=== PATIENT | male | born 1985 | race Caucasian/White ===

== ENCOUNTER → 2016-09-27 | Outpatient (CLI) | payer BC ==
[2016-09-27 12:53] LABS: BASO % 0.7 % (0.0-1.0); EOS % 0.7 % (0.0-3.0); LARGE UNSTAINED CELL # 0.1 K/mm3 (0.0-0.4); LARGE UNSTAINED CELL % 1.2 % (0.0-4.0); LYMPH # 0.9 K/mm3 (1.5-4.5); MEAN CORPUSCULAR HGB CONC 34.1 g/dl (32.0-36.5); MEAN CORPUSCULAR VOLUME 87.9 fl (80.0-96.0); MONO # 0.3 K/mm3 (0.0-0.8); MONO % 5.1 % (0.0-5.0); NEUTROPHILS # 4.1 K/mm3 (1.8-7.7); NEUTROPHILS % 75.2 % (36.0-66.0); PLATELET COUNT, AUTOMATED 239 k/mm3 (150-450); RED CELL DISTRIBUTION WIDTH 12.3 % (11.5-14.5); WHITE BLOOD COUNT 5.5 K/mm3 (4.0-10.0)
[2016-09-27 13:20] LABS: ALBUMIN/GLOBULIN RATIO 1.29 (1.00-1.93); ALKALINE PHOSPHATASE 60 U/L (45-117); ALT/SGPT 65 U/L (12-78); ANION GAP 8 MEQ/L (8-16); AST/SGOT 29 U/L (15-37); BILIRUBIN,TOTAL 0.6 MG/DL (0.2-1.0); BLOOD UREA NITROGEN 16 MG/DL (7-18); CALCIUM LEVEL 8.9 MG/DL (8.5-10.1); CARBON DIOXIDE LEVEL 29 MEQ/L (21-32); CHLORIDE LEVEL 104 MEQ/L (98-107); CREATININE FOR GFR 1.02 MG/DL (0.70-1.30); FREE T4 0.85 NG/DL (0.76-1.46); GLOMERULAR FILTRATION RATE > 60.0 (>60); GLUCOSE, FASTING 112 MG/DL (70-105); POTASSIUM SERUM 4.1 MEQ/L (3.5-5.1); SODIUM LEVEL 141 MEQ/L (136-145); TOTAL PROTEIN 7.1 GM/DL (6.4-8.2)
[2016-09-28 14:12] LABS: Lyme Disease IgG/IgM Antibodie <0.91 ISR (0.00-0.90); Lyme Disease IgM Ab Quantitati <0.80 index (0.00-0.79)
== END ==
LOC: M ADAMS 09:15
PROVIDERS: ATTEND Physician Assistant
DX: R53.83 Other fatigue (principal)

== ENCOUNTER → 2017-06-05 | Outpatient (CLI) | payer BC ==
[2017-06-05 14:35] LABS: ERYTHROCYTE SEDIMENTATION RATE 5 mm/hr (0-15)
[2017-06-05 15:41] LABS: C REACTIVE PROTEIN QUANTITATIV 0.32 MG/DL (0.00-0.30)
[2017-06-10 00:07] LABS: ANCA-ATYPICAL <1:20 titer (Neg:<1:20); ANTI-SACCHAROMYCES CEREV. IgA <20.0 Units (0.0-24.9); ANTI-SACCHAROMYCES CEREV. IgG 44.1 Units (0.0-24.9); CYTOPLASMIC NEUTROP AB ANCA-C <1:20 titer (Neg:<1:20); PERINUCLEAR AB ANCA-P <1:20 titer (Neg:<1:20)
== END ==
LOC: M LAB 12:33
DX: R19.7 Diarrhea, unspecified (principal)
CPT/HCPCS: 86256

== ENCOUNTER 2017-08-01 08:58 | Day surgery (SDC) | payer BC ==
[2017-08-01] MEDS: NS 1,000 ML IV (09:30)
[2017-08-01] MEDS ORDERED: LIDOCAINE 2% INJ 100 MG/5 ML SDV (FOR ANES.) As Ordered (10:06)
[2017-08-01] MEDS ORDERED: PROPOFOL 200 MG/20 ML VIAL As Ordered ×2 (10:06→10:51)
[2017-08-01] MEDS ORDERED: ESMOLOL INJ 100MG/10ML VIAL As Ordered (10:33)
== END 2017-08-01 11:31 | disposition home or self-care (01) ==
LOC: M OPP 08:58
DX: R19.7 Diarrhea, unspecified (principal); K50.90 Crohn's disease, unspecified, without complications; R93.3 Abnormal findings on diagnostic imaging of other parts of digestive tract; K64.8 Other hemorrhoids; K63.89 Other specified diseases of intestine; R00.2 Palpitations; I10 Essential (primary) hypertension; Z87.19 Personal history of other diseases of the digestive system; K21.9 Gastro-esophageal reflux disease without esophagitis; R12 Heartburn; R51 Headache; Z79.899 Other long term (current) drug therapy
CPT/HCPCS: 45380

== ENCOUNTER 2018-06-01 19:24 | Emergency (ER) | payer BC ==
[~2018-06-01] VITALS: Ht 177.8 cm; Wt 120.5 kg
[~2018-06-01 19:24] MED LIST: AMLO5TAB6 PO; LISI40TA PO; PAXI10TA12 PO
[2018-06-01] MEDS ORDERED: NORCOTAB PO (20:41)
[2018-06-01] MEDS ORDERED: NORCO 5/325MG TABLET (BULK FOR ED) PO ONE (20:45)
[2018-06-01 20:54] VITALS: BP 126/79
== END 2018-06-01 20:56 | disposition home or self-care (01) ==
LOC: M ED 19:24
DX: S46.111A Strain of muscle, fascia and tendon of long head of biceps, right arm, initial encounter (principal); X58.XXXA Exposure to other specified factors, initial encounter; Y92.099 Unspecified place in other non-institutional residence as the place of occurrence of the external cause; Y93.9 Activity, unspecified; Y99.9 Unspecified external cause status; I10 Essential (primary) hypertension; Z79.899 Other long term (current) drug therapy

== ENCOUNTER → 2018-06-08 | Outpatient (CLI) | payer BC ==
[~2018-06-08] MED LIST changes: +NORCOTAB PO
[2018-06-08 09:57] LABS: HEMATOCRIT 44.4 % (42.0-52.0); HEMOGLOBIN 15.1 g/dl (13.5-17.5)
[2018-06-08 10:17] LABS: INR 0.96; PROTHROMBIN TIME 12.9 SECONDS (12.1-14.4)
--- NOTE | 2018-06-08 22:37 | ECGEPIP ---
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
== END ==
LOC: M LAB 09:23
PROVIDERS: ATTEND Orthopaedic Surgery Sports Medicine
DX: Z01.810 Encounter for preprocedural cardiovascular examination (principal)

== ENCOUNTER → 2018-06-17 | Outpatient (REF) | payer BC | LOC: M LAB REF 12:11 | PROVIDERS: ATTEND Physician Assistant Medical | DX: J02.9 Acute pharyngitis, unspecified (principal) ==

== ENCOUNTER → 2018-10-22 | Outpatient (REF) | payer BC ==
[~2018-10-22] MED LIST changes: +HYDR-3715 PO; -NORCOTAB PO
[2018-10-22 19:24] LABS: BASO # 0.1 10^3/uL (0.0-0.2); BASO % 0.7 % (0.0-1.0); EOS # 0.1 10^3/uL (0.0-0.50); EOS % 0.6 % (0.0-3.0); HEMATOCRIT 44.2 % (42.0-52.0); HEMOGLOBIN 14.7 g/dl (13.5-17.5); LYMPH # 1.8 10^3/uL (1.5-4.5); LYMPH % 20.5 % (24.0-44.0); MEAN CORPUSCULAR HEMOGLOBIN 28.6 pg (27.0-33.0); MEAN CORPUSCULAR HGB CONC 33.3 g/dl (32.0-36.5); MONO # 0.7 10^3/uL (0.0-0.8); MONO % 7.9 % (0.0-5.0); NEUTROPHILS % 69.8 % (36.0-66.0); PLATELET COUNT, AUTOMATED 286 10^3/uL (150-450); RED BLOOD COUNT 5.14 10^6/uL (4.30-6.10); WHITE BLOOD COUNT 8.6 10^3/uL (4.0-10.0)
[2018-10-22 19:28] LABS: ALBUMIN 3.9 GM/DL (3.2-5.2); ALT/SGPT 54 U/L (12-78); BILIRUBIN,TOTAL 0.3 MG/DL (0.2-1.0); BLOOD UREA NITROGEN 15 MG/DL (7-18); CALCIUM LEVEL 9.1 MG/DL (8.5-10.1); CARBON DIOXIDE LEVEL 31 MEQ/L (21-32); CHLORIDE LEVEL 104 MEQ/L (98-107); CREATININE FOR GFR 1.04 MG/DL (0.70-1.30); GLOMERULAR FILTRATION RATE > 60.0 (>60); GLUCOSE, FASTING 91 MG/DL (70-100); POTASSIUM SERUM 4.5 MEQ/L (3.5-5.1); SODIUM LEVEL 139 MEQ/L (136-145); TOTAL PROTEIN 7.6 GM/DL (6.4-8.2)
== END ==
LOC: M SFHCADAM 12:00
PROVIDERS: ATTEND Physician Assistant Medical
DX: I10 Essential (primary) hypertension (principal); K21.9 Gastro-esophageal reflux disease without esophagitis; E66.01 Morbid (severe) obesity due to excess calories

== ENCOUNTER → 2019-01-19 | Outpatient (REF) | payer BC ==
[~2019-01-19] MED LIST changes: +CIPR-249 PO; +FLOM0.4C39 PO; +NORC1TAB7 PO; +ZOFR4TAB16 PO
[2019-01-19 12:50] LABS: BASO # 0.1 10^3/uL (0.0-0.2); BASO % 0.7 % (0.0-1.0); EOS # 0.1 10^3/uL (0.0-0.5); HEMATOCRIT 44.5 % (42.0-52.0); HEMOGLOBIN 14.6 g/dl (13.5-17.5); LYMPH # 1.6 10^3/uL (1.5-5.0); LYMPH % 23.4 % (24.0-44.0); MEAN CORPUSCULAR HEMOGLOBIN 28.6 pg (27.0-33.0); MEAN CORPUSCULAR HGB CONC 32.8 g/dl (32.0-36.5); MEAN CORPUSCULAR VOLUME 87.3 fl (80.0-96.0); MONO # 0.6 10^3/uL (0.0-0.8); NEUTROPHILS # 4.4 10^3/uL (1.5-8.5); NEUTROPHILS % 65.2 % (36.0-66.0); PLATELET COUNT, AUTOMATED 255 10^3/uL (150-450); WHITE BLOOD COUNT 6.8 10^3/uL (4.0-10.0)
[2019-01-19 12:58] LABS: APPEARANCE, URINE CLEAR (CLEAR); BACTERIA, URINE AUTO NEGATIVE (NEGATIVE); BILIRUBIN, URINE AUTO NEGATIVE (NEGATIVE); BLOOD, URINE BLOOD NEGATIVE (NEGATIVE); CALCIUM OXALATE CRYSTALS SMALL; COLOR, URINE YELLOW (YELLOW); GLUCOSE, URINE (UA) AUTO NEGATIVE (NEGATIVE); KETONE, URINE AUTO NEGATIVE (NEGATIVE); LEUKOCYTE ESTERASE, URINE AUTO NEGATIVE (NEGATIVE); MUCUS, URINE SMALL (NEGATIVE); NITRITE, URINE AUTO NEGATIVE (NEGATIVE); PROTEIN, URINE AUTO NEGATIVE (NEGATIVE); RBC, URINE AUTO 1 /HPF (0-3); SPECIFIC GRAVITY URINE AUTO 1.019 (1.002-1.035); SQUAMOUS EPITHELIAL CELL UR AU 0 /HPF (0-6); UROBILINOGEN, URINE AUTO 0.2 mg/dL (0.0-2.0); WBC, URINE AUTO 1 /HPF (0-3)
[2019-01-19 13:22] LABS: ALT/SGPT 91 U/L (12-78); BILIRUBIN,TOTAL 0.4 MG/DL (0.2-1.0); BLOOD UREA NITROGEN 18 MG/DL (7-18); CALCIUM LEVEL 9.8 MG/DL (8.5-10.1); CARBON DIOXIDE LEVEL 30 MEQ/L (21-32); CHLORIDE LEVEL 104 MEQ/L (98-107); CHOLESTEROL LEVEL 180 MG/DL (<200); CHOLESTEROL RISK RATIO 6.206 (<5); CREATININE FOR GFR 1.14 MG/DL (0.70-1.30); FREE T4 0.96 NG/DL (0.76-1.46); GLOMERULAR FILTRATION RATE > 60.0 (>60); GLUCOSE, FASTING 96 MG/DL (70-100); HDL CHOLESTEROL 29 MG/DL (>40); LDL CHOLESTEROL 90 MG/DL (<100); NON-HDL-C 151 MG/DL; POTASSIUM SERUM 4.5 MEQ/L (3.5-5.1); SODIUM LEVEL 141 MEQ/L (136-145); TOTAL PROTEIN 7.4 GM/DL (6.4-8.2); TRIGLYCERIDES LEVEL 304 MG/DL (<150)
[2019-01-19 13:24] LABS: TOTAL 25(OH) VITAMIN D 26.4 NG/ML (30.0-100.0)
== END ==
LOC: M SFHCADAM 07:56
PROVIDERS: ATTEND Physician Assistant Medical
DX: K21.9 Gastro-esophageal reflux disease without esophagitis (principal); E66.01 Morbid (severe) obesity due to excess calories; Z80.42 Family history of malignant neoplasm of prostate; R39.198 Other difficulties with micturition; E55.9 Vitamin D deficiency, unspecified
CPT/HCPCS: 80053; 80061; 81001; 82306; 84439; 84443; 85025; 87086; G0103

== ENCOUNTER 2019-01-20 04:53 | Emergency (ER) | payer BC ==
[~2019-01-20] VITALS: Ht 180.3 cm; Wt 122.7 kg
[~2019-01-20 04:53] MED LIST changes: -CIPR-249 PO; -FLOM0.4C39 PO; -NORC1TAB7 PO; -ZOFR4TAB16 PO
[2019-01-20] MEDS ORDERED: KETOROLAC 30 MG/ML VIAL (J1885) As Ordered ONE (05:34)
[2019-01-20] MEDS ORDERED: ONDANSETRON 4MG/2ML VIAL (J2405) As Ordered ONE (05:34)
[2019-01-20] MEDS ORDERED: NS 1,000 ML IV ONE ×2 (05:45→07:00)
[2019-01-20] MEDS ORDERED: ONDANSETRON 4MG/2ML VIAL (J2405) IV ONE ×2 (05:45→08:00)
[2019-01-20] MEDS ORDERED: KETOROLAC 30 MG/ML VIAL (J1885) IV ONE (05:45)
[2019-01-20 05:46] LABS: BASO # 0.1 10^3/uL (0.0-0.2); BASO % 0.7 % (0.0-1.0); EOS # 0.1 10^3/uL (0.0-0.5); EOS % 0.6 % (0.0-3.0); HEMATOCRIT 43.2 % (42.0-52.0); LYMPH # 2.6 10^3/uL (1.5-5.0); LYMPH % 27.5 % (24.0-44.0); MEAN CORPUSCULAR HEMOGLOBIN 29.5 pg (27.0-33.0); MEAN CORPUSCULAR HGB CONC 34.7 g/dl (32.0-36.5); MEAN CORPUSCULAR VOLUME 84.9 fl (80.0-96.0); MONO # 0.8 10^3/uL (0.0-0.8); NEUTROPHILS # 5.8 10^3/uL (1.5-8.5); NEUTROPHILS % 62.7 % (36.0-66.0); PLATELET COUNT, AUTOMATED 301 10^3/uL (150-450); RED BLOOD COUNT 5.09 10^6/uL (4.30-6.10); WHITE BLOOD COUNT 9.3 10^3/uL (4.0-10.0)
[2019-01-20 06:08] LABS: ALBUMIN 4.2 GM/DL (3.2-5.2); ALT/SGPT 95 U/L (12-78); BILIRUBIN,DIRECT < 0.1 MG/DL (0.0-0.2); BILIRUBIN,TOTAL 0.5 MG/DL (0.2-1.0); BLOOD UREA NITROGEN 18 MG/DL (7-18); CALCIUM LEVEL 9.4 MG/DL (8.5-10.1); CARBON DIOXIDE LEVEL 20 MEQ/L (21-32); CHLORIDE LEVEL 105 MEQ/L (98-107); CREATININE FOR GFR 1.49 MG/DL (0.70-1.30); GLOMERULAR FILTRATION RATE 57.5 (>60); GLUCOSE, FASTING 143 MG/DL (70-100); LIPASE 128 U/L (73-393); POTASSIUM SERUM 3.3 MEQ/L (3.5-5.1); SODIUM LEVEL 140 MEQ/L (136-145); TOTAL PROTEIN 7.7 GM/DL (6.4-8.2)
--- NOTE | 2019-01-20 06:11 | REPVR ---
EXAM: CT Abdomen and Pelvis Without Contrast EXAM DATE/TIME: 01/20/2019 5:37 AM CLINICAL HISTORY: 33 years old, male; Abdominal pain; Flank; Left; Additional info: Left flank pain TECHNIQUE: Imaging protocol: Computed tomography of the abdomen and pelvis without contrast. Radiation optimization: All CT scans at this facility use at least one of these dose optimization techniques: automated exposure control; mA and/or kV adjustment per patient size (includes targeted exams where dose is matched to clinical indication); or iterative reconstruction. COMPARISON: No relevant prior studies available. FINDINGS: Liver: The liver attenuation is 17 Hounsfield units and the spleen is 46 Hounsfield units. Gallbladder and bile ducts: Normal. No calcified stones. No ductal dilation. Pancreas: Normal. No ductal dilation. Spleen: Normal. No splenomegaly. Adrenals: Normal. No mass. Kidneys and ureters: Slight left renal sinus edema and minimal left hydronephrosis and hydroureter extending to a 2 mm left UVJ calculus. Punctate nonobstructing left renal calculus in the lower pole. Stomach and bowel: There a few colonic diverticula without diverticulitis. Appendix: A normal appendix is seen. Intraperitoneal space: Unremarkable. No free air. No significant fluid collection. Vasculature: Unremarkable. No abdominal aortic aneurysm. Lymph nodes: Unremarkable. No enlarged lymph nodes. Bladder: Unremarkable as visualized. Reproductive: Unremarkable as visualized. Bones/joints: Unremarkable. No acute fracture. Soft tissues: Unremarkable. IMPRESSION: 1. 2 mm left UVJ calculus with secondary obstructive uropathy of the left upper tract. 2. Punctate nonobstructing left renal calculus in lower pole. 3. Fatty infiltration of the liver. 4. There are a few colonic diverticula without diverticulitis. Electronically signed by: Efrem Reyes On 01/20/2019 06:11:08 AM
[2019-01-20] MEDS ORDERED: MORPHINE 4 MG/ML 1ML VIAL/SYRINGE (J2270) IV ONE (06:45)
[2019-01-20] MEDS ORDERED: PROMETHAZINE INJ 25 MG/ML VIAL (J2550) IV ONE (06:45)
[2019-01-20] MEDS ORDERED: TAMSULOSIN 0.4 MG CAP PO ONE (07:00)
[2019-01-20 07:15] VITALS: BP 171/77
[2019-01-20] MEDS ORDERED: MORPHINE 2 MG/ML 1ML SYRINGE (J2270) As Ordered ONE (07:58)
[2019-01-20] MEDS ORDERED: MORPHINE 2 MG/ML 1ML SYRINGE (J2270) IV ONE (08:00)
[2019-01-20 09:21] LABS: BLOOD UREA NITROGEN 19 MG/DL (7-18); CALCIUM LEVEL 8.4 MG/DL (8.5-10.1); CARBON DIOXIDE LEVEL 24 MEQ/L (21-32); CHLORIDE LEVEL 108 MEQ/L (98-107); CREATININE FOR GFR 1.39 MG/DL (0.70-1.30); GLOMERULAR FILTRATION RATE > 60.0 (>60); GLUCOSE, FASTING 106 MG/DL (70-100); POTASSIUM SERUM 3.9 MEQ/L (3.5-5.1); SODIUM LEVEL 141 MEQ/L (136-145)
[2019-01-20] MEDS ORDERED: FLOM0.4C39 PO (10:42)
[2019-01-20] MEDS ORDERED: CIPR-249 PO (10:42)
[2019-01-20] MEDS ORDERED: NORC1TAB7 PO (10:42)
[2019-01-20] MEDS ORDERED: ZOFR4TAB16 PO (11:03)
== END 2019-01-20 11:09 | disposition home or self-care (01) ==
LOC: M ED 04:53
DX: N39.0 Urinary tract infection, site not specified (principal); N20.0 Calculus of kidney; I10 Essential (primary) hypertension; K21.9 Gastro-esophageal reflux disease without esophagitis; Z79.899 Other long term (current) drug therapy
CPT/HCPCS: 74176; 80048; 80076; 81001; 83690; 85025; 87086; 96361; 96374; 96375; 96376; 99284; J1885; J2270; J2405

== ENCOUNTER → 2019-02-12 | Outpatient (REF) | payer BC ==
[~2019-02-12] MED LIST changes: +CIPR-249 PO; +FLOM0.4C39 PO; +NORC1TAB7 PO; +ZOFR4TAB16 PO
[2019-02-12 13:54] LABS: APPEARANCE, URINE CLEAR (CLEAR); BACTERIA, URINE AUTO NEGATIVE (NEGATIVE); BILIRUBIN, URINE AUTO NEGATIVE (NEGATIVE); BLOOD, URINE BLOOD NEGATIVE (NEGATIVE); COLOR, URINE YELLOW (YELLOW); GLUCOSE, URINE (UA) AUTO NEGATIVE (NEGATIVE); KETONE, URINE AUTO NEGATIVE (NEGATIVE); LEUKOCYTE ESTERASE, URINE AUTO NEGATIVE (NEGATIVE); MUCUS, URINE SMALL (NEGATIVE); NITRITE, URINE AUTO NEGATIVE (NEGATIVE); PROTEIN, URINE AUTO NEGATIVE (NEGATIVE); RBC, URINE AUTO 0 /HPF (0-3); SPECIFIC GRAVITY URINE AUTO 1.018 (1.002-1.035); SQUAMOUS EPITHELIAL CELL UR AU 0 /HPF (0-6); UROBILINOGEN, URINE AUTO 0.2 mg/dL (0.0-2.0); WBC, URINE AUTO 0 /HPF (0-3)
== END ==
LOC: M SMT 12:53
PROVIDERS: ATTEND Nurse Practitioner Family
DX: N20.0 Calculus of kidney (principal)

== ENCOUNTER 2019-05-20 18:11 | Emergency (ER) | payer BC ==
[~2019-05-20] VITALS: Ht 180.3 cm; Wt 118.4 kg
[2019-05-20] MEDS ORDERED: CHLO125TA PO (18:19)
[2019-05-20] MEDS ORDERED: PARO20TA3 PO (18:19)
[2019-05-20 19:15] LABS: BASO # 0.1 10^3/uL (0.0-0.2); BASO % 0.3 % (0.0-1.0); EOS # 0.1 10^3/uL (0.0-0.5); EOS % 0.6 % (0.0-3.0); HEMATOCRIT 42.8 % (42.0-52.0); HEMOGLOBIN 13.9 g/dl (13.5-17.5); LYMPH # 1.3 10^3/uL (1.5-5.0); LYMPH % 8.8 % (24.0-44.0); MEAN CORPUSCULAR HEMOGLOBIN 28.1 pg (27.0-33.0); MEAN CORPUSCULAR HGB CONC 32.5 g/dl (32.0-36.5); MEAN CORPUSCULAR VOLUME 86.6 fl (80.0-96.0); MONO # 0.9 10^3/uL (0.0-0.8); MONO % 6.2 % (0.0-5.0); NEUTROPHILS # 12.1 10^3/uL (1.5-8.5); NEUTROPHILS % 83.5 % (36.0-66.0); PLATELET COUNT, AUTOMATED 264 10^3/uL (150-450); RED BLOOD COUNT 4.94 10^6/uL (4.30-6.10); WHITE BLOOD COUNT 14.5 10^3/uL (4.0-10.0)
[2019-05-20 19:40] LABS: ALBUMIN 3.7 GM/DL (3.2-5.2); ALT/SGPT 58 U/L (12-78); BILIRUBIN,DIRECT 0.1 MG/DL (0.0-0.2); BILIRUBIN,TOTAL 0.3 MG/DL (0.2-1.0); BLOOD UREA NITROGEN 21 MG/DL (7-18); CALCIUM LEVEL 8.9 MG/DL (8.5-10.1); CARBON DIOXIDE LEVEL 30 MEQ/L (21-32); CHLORIDE LEVEL 98 MEQ/L (98-107); CREATININE FOR GFR 1.08 MG/DL (0.70-1.30); GLOMERULAR FILTRATION RATE > 60.0 (>60); GLUCOSE, FASTING 100 MG/DL (70-100); LIPASE 122 U/L (73-393); POTASSIUM SERUM 3.7 MEQ/L (3.5-5.1); SODIUM LEVEL 136 MEQ/L (136-145); TOTAL PROTEIN 7.4 GM/DL (6.4-8.2)
[2019-05-20] MEDS ORDERED: NS 1,000 ML IV ONE (20:15)
--- NOTE | 2019-05-20 20:43 | REPVR ---
PROCEDURE INFORMATION: Exam: CT Abdomen And Pelvis Without Contrast Exam date and time: 05/20/2019 8:20 PM Age: 34 years old Clinical indication: Abdominal pain; Generalized; Additional info: Diffuse abd pain, constipation, HX of renal calc and crohn's TECHNIQUE: Imaging protocol: Computed tomography of the abdomen and pelvis without contrast. Radiation optimization: All CT scans at this facility use at least one of these dose optimization techniques: automated exposure control; mA and/or kV adjustment per patient size (includes targeted exams where dose is matched to clinical indication); or iterative reconstruction. COMPARISON: CT ABD PELVIS W/O CONTRAST 01/20/2019 5:42 AM FINDINGS: Liver: There is a diffuse decrease in hepatic parenchymal density, consistent with fatty infiltration. Gallbladder and bile ducts: Normal. No calcified stones. No ductal dilation. Pancreas: Normal. No ductal dilation. Spleen: Normal. No splenomegaly. Adrenals: Normal. No mass. Kidneys and ureters: Normal. No hydronephrosis. Stomach and bowel: Inflammation wall thickening and stranding in the adjacent mesentery and extraperitoneal fat demonstrated in the mid sigmoid colon at the upper pelvis and adjacent loop of ileum, findings consistent with known history of Crohn disease although acute diverticulitis in secondary involvement of adjacent small bowel is not excluded. No abscess demonstrated. Appendix: No evidence of appendicitis. Intraperitoneal space: Unremarkable. No free air. No significant fluid collection. Vasculature: Unremarkable. No abdominal aortic aneurysm. Lymph nodes: Unremarkable. No enlarged lymph nodes. Bladder: Unremarkable as visualized. Reproductive: Unremarkable as visualized. Bones/joints: Unremarkable. No acute fracture. Soft tissues: Bilateral inguinal hernias. No strangulation. IMPRESSION: 1. There is a diffuse decrease in hepatic parenchymal density, consistent with fatty infiltration. 2. Inflammation wall thickening and stranding in the adjacent mesentery and extraperitoneal fat demonstrated in the mid sigmoid colon at the upper pelvis and adjacent loop of ileum, findings consistent with known history of Crohn disease although acute diverticulitis in secondary involvement of adjacent small bowel is not excluded. No abscess demonstrated. Electronically signed by: Isaías Hallman On 05/20/2019 20:43:19 PM
[2019-05-20] MEDS ORDERED: methylPREDNISolone INJ 125 MG/2 ML VIAL (J2930) IV ONE (21:00)
[2019-05-20] MEDS ORDERED: CIPROFLOXACIN 400 MG in IV 1 EA IV ONE (21:00)
[2019-05-20] MEDS ORDERED: PIPERACILLIN/TAZOBACTAM SOD 3.375 GM in D5W MINI-BAG PLUS 50 ML IV ONE (21:00)
[2019-05-20] MEDS ORDERED: CIPR-249 PO (22:27)
[2019-05-20] MEDS ORDERED: PRED10TA2 PO (22:27)
[2019-05-20] MEDS ORDERED: FLAG500T PO (22:27)
[2019-05-20] MEDS ORDERED: metroNIDAZOLE (FLAGYL) 500 MG TAB As Ordered ONE (22:34)
[2019-05-20 22:41] VITALS: BP 133/61
[2019-05-20] MEDS ORDERED: metroNIDAZOLE (FLAGYL) 500 MG TAB PO ONE (22:45)
== END 2019-05-20 22:44 | disposition home or self-care (01) ==
LOC: M ED 18:11
DX: K51.919 Ulcerative colitis, unspecified with unspecified complications (principal); K50.919 Crohn's disease, unspecified, with unspecified complications; K58.9 Irritable bowel syndrome, unspecified; Z79.899 Other long term (current) drug therapy
CPT/HCPCS: 74176; 80048; 80076; 81001; 83690; 85025; 96365; 96375; 99284; J0744; J2930

== ENCOUNTER 2019-05-23 09:30 | Inpatient (IN) | payer BC ==
[~2019-05-23] VITALS: Ht 180.3 cm; Wt 115.0 kg
[~2019-05-23 09:30] MED LIST changes: +CHLO125TA PO; +FLAG500T PO; +PARO20TA3 PO; +PRED10TA2 PO
[2019-05-23] MEDS ORDERED: KETOROLAC 30 MG/ML VIAL (J1885) IV ONE (10:15)
[2019-05-23 10:23] LABS: BASO % 0.3 % (0.0-1.0); EOS % 0.1 % (0.0-3.0); HEMATOCRIT 42.4 % (42.0-52.0); HEMOGLOBIN 13.7 g/dl (13.5-17.5); LYMPH # 1.1 10^3/uL (1.5-5.0); LYMPH % 6.6 % (24.0-44.0); MEAN CORPUSCULAR HEMOGLOBIN 28.4 pg (27.0-33.0); MEAN CORPUSCULAR HGB CONC 32.3 g/dl (32.0-36.5); MEAN CORPUSCULAR VOLUME 87.8 fl (80.0-96.0); NEUTROPHILS # 13.7 10^3/uL (1.5-8.5); NEUTROPHILS % 85.8 % (36.0-66.0); PLATELET COUNT, AUTOMATED 306 10^3/uL (150-450); RED BLOOD COUNT 4.83 10^6/uL (4.30-6.10)
[2019-05-23] MEDS: NS 1,000 ML IV SCH ×3 (10:28→23:50)
[2019-05-23 11:01] LABS: ALBUMIN 3.4 GM/DL (3.2-5.2); ALT/SGPT 47 U/L (12-78); BILIRUBIN,DIRECT 0.2 MG/DL (0.0-0.2); BILIRUBIN,TOTAL 0.7 MG/DL (0.2-1.0); BLOOD UREA NITROGEN 21 MG/DL (7-18); CALCIUM LEVEL 8.7 MG/DL (8.5-10.1); CARBON DIOXIDE LEVEL 27 MEQ/L (21-32); CHLORIDE LEVEL 98 MEQ/L (98-107); CREATININE FOR GFR 1.09 MG/DL (0.70-1.30); GLOMERULAR FILTRATION RATE > 60.0 (>60); GLUCOSE, FASTING 114 MG/DL (70-100); LIPASE 78 U/L (73-393); POTASSIUM SERUM 4.2 MEQ/L (3.5-5.1); SODIUM LEVEL 133 MEQ/L (136-145); TOTAL PROTEIN 7.5 GM/DL (6.4-8.2)
[2019-05-23] MEDS ORDERED: ISOVUE-370 76% 100ML VIAL (Q9967) As Ordered ONE (11:08)
--- NOTE | 2019-05-23 12:27 | REP ---
CT ABDOMEN AND PELVIS WITH IV BUT WITHOUT ORAL CONTRAST: HISTORY: Increasing abdominal pain. Comparison CT study 3 days prior May 20 2019. Crohn's versus diverticulitis. CT CONTRAST DOSE: 100 mL of intravenous [id number]. 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 Otherwise negative. The lung bases are clear on axial CT images. No pleural effusion is seen. There is diffuse fatty infiltration of the liver again noted. The liver is not felt to be enlarged overall. No focal liver lesion is seen. Spleen is unremarkable. No adrenal abnormality is seen. No abnormalities noted in the pancreas or gallbladder. There is a small cyst in the left kidney posteriorly, 1.5 cm in greatest diameter. No hydronephrosis seen. There is a fairly large area of mesenteric fat streaking in the lower abdomen extending to the retroperitoneum and into the paracolic gutters bilaterally. This is more extensive than on the May 20, 2019 study. It appears to be associated with an abnormal loop of distal ileum which shows moderate mural thickening. This extends up to the ileocecal valve. A normal appendix is seen inferiorly adjacent to this. The involved ileal loop extends from the central abdomen into the right lower quadrant ileocecal valve region. Along its inferior and lateral margin, there is uncontained air, consistent with fistulization or perforation of this loop of distal ileum. There is adjacent inflammation of the mesenteric fat. These findings are more prominent. There is diverticulosis of the nearby loop of sigmoid colon with some mural thickening and pericolonic stranding in this location. Mural thickening in the ileal loop is much more pronounced today than it was May 20, 2019. There is a tiny bubble of uncontained air along the lateral wall of the sigmoid colon. There is no visible abscess. Urinary bladder, seminal vesicles, and prostate are unremarkable. No abdominal wall defect is seen. IMPRESSION: Progressive inflammatory changes in the central abdomen involving sigmoid colon and a nearby loop of distal and terminal ileum. There is uncontained air in the region suggesting fistulization. No abscess or distant free air is seen. Normal appendix. Electronically Signed by Kentrell Keita MD 05/23/2019 02:30 P
[2019-05-23] MEDS ORDERED: metroNIDAZOLE 500 MG in IV 1 EA IV ONE (12:45)
[2019-05-23] MEDS ORDERED: CIPROFLOXACIN 400 MG in IV 1 EA IV ONE (12:45)
[2019-05-23] MEDS ORDERED: CIPR500T39 PO (13:25)
[2019-05-23] MEDS ORDERED: PRED10TA2 PO (13:25)
[2019-05-23] MEDS ORDERED: FLAG500T PO (13:25)
--- NOTE | 2019-05-23 13:39 | HPEPDOC ---
[facility] Medical History & Physical Date of Admission May 23, 2019 Date of Service: May 23, 2019 History and Physical CHIEF COMPLAINT: Abdominal pain HISTORY OF PRESENT ILLNESS: Patient is 34M with PMH rectal bleeding s/p colonoscopy x2 and HTN presented to the ER with complaints of abdominal pain for the past 3 days. He has had GI bleeding in 2010 and underwent a colonoscopy at that time initially with Dr. Brewster then follow by the second colonoscopy in the past year and had not been told he has had any particular diagnosis. There was a concern for Crohn's but patient does not report formally given that diagnosis. One week prior, he reported having constipation and starting taking laxatives resulting in loose stools then for the past 3 days he reportedly developed abdominal pain intermittently. Pain is described as intermittent, sometimes sharp, other times dull, nonradiating, normally periumbilical, worst with lying on the side and improves when lying on his back associated with fever of 101. He was seen in ER 2-3 days ago and was started on Cipro and flagyl without relief and came back in today. CT abdomen/pelvis shows inflammatory changes in sigmoid colon and nearby ileum as well as uncontained air locally. Patient currently reports feeling better and asymptomatic lying still, but when abdomen is palpated, he reports mild to moderate tenderness in periumbilical region. Denies any other complaints including chest pain, SOB, nausea, vomiting, fever, chills at this time. PAST MEDICAL HISTORY: Refer to [facility] PAST SURGICAL HISTORY: Colonoscopies x 2 Vasectomy Bicep tendon surgery SOCIAL HISTORY: Denies tobacco, alcohol or illicit drug use. FAMILY HISTORY: Father- DM and HTN ALLERGIES: Please see below. REVIEW OF SYSTEMS: 10 point review of system negative except as stated in [facility] HOME MEDICATIONS: Please see below. PHYSICAL EXAMINATION: General: No acute distress, Alert Eyes: Normal sclera, EOMI HENT: Atraumatic Cardiovascular: Normal rate Pulmonary: Clear to auscultation b/l, no wheezing GI: Soft, mild to moderate tenderness periumbilical, no rebound tenderness, no flank bruising, no discoloration Skin: Warm and dry Neuro: CN grossly intact. No focal deficits. Strengths equal b/l. Psych: oriented x 3 LABORATORY DATA: See below. 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 Otherwise negative. The lung bases are clear on axial CT images. No pleural effusion is seen. There is diffuse fatty infiltration of the liver again noted. The liver is not felt to be enlarged overall. No focal liver lesion is seen. Spleen is unremarkable. No adrenal abnormality is seen. No abnormalities noted in the pancreas or gallbladder. There is a small cyst in the left kidney posteriorly, 1.5 cm in greatest diameter. No hydronephrosis seen. There is a fairly large area of mesenteric fat streaking in the lower abdomen extending to the retroperitoneum and into the paracolic gutters bilaterally. This is more extensive than on the May 20, 2019 study. It appears to be associated with an abnormal loop of distal ileum which shows moderate mural thickening. This extends up to the ileocecal valve. A normal appendix is seen inferiorly adjacent to this. The involved ileal loop extends from the central abdomen into the right lower quadrant ileocecal valve region. Along its inferior and lateral margin, there is uncontained air, consistent with fistulization or perforation of this loop of distal ileum. There is adjacent inflammation of the mesenteric fat. These findings are more prominent. There is diverticulosis of the nearby loop of sigmoid colon with some mural thickening and pericolonic stranding in this location. Mural thickening in the ileal loop is much more pronounced today than it was May 20, 2019. There is a tiny bubble of uncontained air along the lateral wall of the sigmoid colon. There is no visible abscess. Urinary bladder, seminal vesicles, and prostate are unremarkable. No abdominal wall defect is seen. IMPRESSION: Progressive inflammatory changes in the central abdomen involving sigmoid colon and a nearby loop of distal and terminal ileum. There is uncontained air in the region suggesting fistulization. No abscess or distant free air is seen. Normal appendix. MICROBIOLOGY: Please see below. ASSESSMENT AND PLAN: 1. Abdominal pain - Concern for Crohn's flare w/ fistulization and microperforation. Has had colonoscopies in the past without definitive diagnosis. - Will continue with antibiotics and IV steroids. - IVF, keep NPO. - Surgery consulted. Appreciated input. - Pain control. 2. HTN - Will hold PO meds for now. If BP uncontrolled, will move to PCU for IV anti- hypertensives. DVT ppx: TEDs Code status: Full code Dispo: Home when medically cleared. No PT needs anticipated at this time. Vital Signs Vital Signs Date Time Temp Pulse Resp B/P (MAP) Pulse Ox O2 Delivery O2 Flow Rate FiO2 05/23/19 13:20 98.8 94 16 119/58 (78) 96 05/23/19 10:31 Room Air Laboratory Data Labs 24H Laboratory Tests 2 05/23/19 10:11: Immature Granulocyte % (Auto) 1.2, Neutrophils (%) (Auto) 85.8H, Lymphocytes (%) (Auto) 6.6L, Monocytes (%) (Auto) 6.0H, Eosinophils (%) (Auto) 0.1, Basophils (%) (Auto) 0.3, Neutrophils # (Auto) 13.7H, Lymphocytes # (Auto) 1.1L, Monocytes # (Auto) 1.0H, Eosinophils # (Auto) 0.0, Basophils # (Auto) 0.0, Nucleated Red Blood Cells % (auto) 0.0, Anion Gap 8, Glomerular Filtration Rate > 60.0, Calcium Level 8.7, Total Bilirubin 0.7#, Direct Bilirubin 0.2, Aspartate Amino Transf (AST/SGOT) 15, Alanine Aminotransferase (ALT/SGPT) 47, Alkaline Phosphatase 68, Total Protein 7.5, Albumin 3.4, Albumin/Globulin Ratio 0.83L, Lipase 78 CBC/BMP Laboratory Tests 05/23/19 10:11 Home Medications Scheduled Amlodipine Besylate (Amlodipine Besylate) 5 Mg Tab, 5 MG PO DAILY Chlorthalidone (Chlorthalidone) 25 Mg Tablet, 25 MG PO DAILY Ciprofloxacin HCl (Ciprofloxacin HCl) 500 Mg Tablet, 500 MG PO BID ON 3RD DAY OF 7 Lisinopril (Lisinopril) 40 Mg Tab, 40 MG PO DAILY Metronidazole (Flagyl) 500 Mg Tablet, 500 MG PO Q8H ON 3RD OF 7 DAYS Paroxetine HCl (Paroxetine HCl) 20 Mg Tablet, 20 MG PO DAILY Prednisone (Prednisone) 10 Mg Tablet, 10 MG PO TAPER Take 4 tabs daily x 7 days, then 3 tabs daily x 7 days, then 2 tabs daily x 7 days, then 1 tab daily x 7 days and stop Allergies Coded Allergies: No Known Allergies (Unverified , 07/18/17) A-FIB/CHADSVASC A-FIB History Current/History of A-Fib/PAF?: No FER MORIN MD May 23, 2019 13:39
[2019-05-23] MEDS ORDERED: MORPHINE 2 MG/ML 1ML VIAL (J2270) IV PRN ×2 (14:00)
[2019-05-23] MEDS ORDERED: ACETAMINOPHEN TAB 650MG DOSE (2X325MG) PO PRN (14:00)
[2019-05-23 14:40] VITALS: BP 134/66
[2019-05-23] MEDS: methylPREDNISolone INJ 125 MG/2 ML VIAL (J2930) IV SCH (16:01)
[2019-05-23] MEDS: PIPERACILLIN/TAZOBACTAM SOD 4.5 GM in D5W MINI-BAG PLUS 50 ML IV SCH ×2 (18:27→23:51)
--- NOTE | 2019-05-23 19:12 | CR.PDOC ---
General Surgery Consultation Date of Consultation 05/23/19 History and Physical CONSULT REPORT FOR: Emergency room physician/hospitalist service REASON FOR CONSULTATION: Abdominal pain, Crohn's ileitis, colitis versus diverticulitis HISTORY OF PRESENT ILLNESS: Patient presented himself to the emergency room with abdominal pain. This is his second presentation to the emergency room within a week's time. He complains of crampy stabbing pain centered the mid abdominal area radiating to both lower abdominal area. He denies any associated fevers or chills. He has been able to tolerate at least liquids which he was instructed to do following the previous emergency room visits. He also has been started on Cipro and metronidazole since that. He returns today because of continued sometimes worsening abdominal pain. He actually felt worse Friday and was contemplating going to the emergency room after leaving work. His house was in between his work place and the emergency room so he decided to stay home instead and spent home yesterday with continued abdominal pain though feeling mildly better than the day prior. As mentioned he was seen roughly about 3 days ago in the emergency room. At that time his been having about 2 days of abdominal pain. CT at that time shows inflammation both the terminal ileum and sigmoid colon. He was discharged home on prednisone as well as ciprofloxacin and metronidazole. He also has been being suspected of having Crohn's disease. He has had 2 colonoscopies one in 2010 and another in 2018. He has evidence of some mild nonspecific inflammation on the sigmoid colon on the colonoscopy in 2010. He has some inflammation around the terminal ileum as well as the sigmoid colon. Clinically is not really been having much symptoms to refer to possibility of inflammatory bowel disease. He denies any chronic diarrhea, bloody diarrhea, unexplained weight loss. He does not have any family history for inflammatory bowel disease. PAST MEDICAL HISTORY: 1. Suspicion for Crohn's disease PAST SURGICAL HISTORY: INCLUDES: 1. Colonoscopy in 2010 and in 2018. ALLERGIES: Please see below. FAMILY HISTORY: Denies any significant family history for inflammatory bowel disease HOME MEDICATIONS: Please see below. REVIEW OF SYSTEMS: GENERAL: Patient is denying any unexplained weight loss, fevers and chills, body aches or pains aside from the abdominal pain that is slightly more than a week old now. He is not chronically ill and denies any chronic medical complaints. HEENT: Patient denies any vision, hearing problems.. NECK: Denies any neck pain CARDIOVASCULAR: Denies chest pain and palpitations. MUSCULOSKELETAL: Denies arthralgias, back pain and thrombophlebitis. SKIN: Denies rash. NEUROLOGIC: Denies headaches. PSYCHIATRIC: Denies anxiety and depression. HEMATOLOGY/ONCOLOGY: Denies bleeding or clotting disorder. PULMONARY: Denies chronic cough, dyspnea and wheezing. GASTROINTESTINAL: Refer to HPI. GENITOURINARY: Denies dysuria, frequency, hematuria and nocturia. ENDOCRINE: Denies polydipsia, polyphagia, polyuria, heat or cold intolerance. INFECTIOUS: Patient has been on ciprofloxacin and metronidazole for the past 2 days, steroids for the past 2 days. NUTRITION: Reports fair appetite. We'll some bleeding between meals. Currently just on liquids. PHYSICAL EXAMINATION: VITALS SIGNS: Please see below. GENERAL APPEARANCE: Patient seen laying on bed, overall does not look toxic. He is cooperative. Does not look chronically ill. Moderately obese in appearance. SKIN: Warm and dry. HEENT: Normocephalic, atraumatic. [place] palpebral conjunctiva, anicteric sclerae. Lips and mucosa appear mildly dry. NECK: Supple, no thyromegaly. No obvious jugular venous distention. LUNGS: Clear to auscultation bilaterally. No wheezing appreciated. HEART: No chest wall abnormalities. Regular rate and rhythm with no murmurs appreciated. ABDOMEN: Abdomen is , obese, soft, no obvious distention . No hepatosplenomegaly. No umbilical or groin herniations, nondistended. He has some mild tenderness over the mid lower abdomen with slight radiation to the right and left side, No noticeable rebound or guarding. No grimacing with palpation. No rebound tenderness. No masses appreciated. EXTREMITIES: Extremities have no deformities. No edema identified ANCILLARIES: . LABORATORY DATA: Please see below. IMAGING STUDIES: CT abdomen and pelvis There is a fairly large area of mesenteric fat streaking in the lower abdomen extending to the retroperitoneum and into the paracolic gutters bilaterally. This is more extensive than on the May 20, 2019 study. It appears to be associated with an abnormal loop of distal ileum which shows moderate mural thickening. This extends up to the ileocecal valve. A normal appendix is seen inferiorly adjacent to this. The involved ileal loop extends from the central abdomen into the right lower quadrant ileocecal valve region. Along its inferior and lateral margin, there is uncontained air, consistent with fistulization or perforation of this loop of distal ileum. There is adjacent inflammation of the mesenteric fat. These findings are more prominent. There is diverticulosis of the nearby loop of sigmoid colon with some mural thickening and pericolonic stranding in this location. Mural thickening in the ileal loop is much more pronounced today than it was May 20, 2019. There is a tiny bubble of uncontained air along the lateral wall of the sigmoid colon. There is no visible abscess. Urinary bladder, seminal vesicles, and prostate are unremarkable. No abdominal wall defect is seen. IMPRESSION: Progressive inflammatory changes in the central abdomen involving sigmoid colon and a nearby loop of distal and terminal ileum. There is uncontained air in the region suggesting fistulization. No abscess or distant free air is seen. Normal appendix. IMPRESSION AND PLAN: Terminal ileitis, sigmoid colitis versus diverticulitis I think more likely this is Crohn's ileitis which is concerning with progression to what appears to be transmural inflammation, may be contained perforation. There is of evidence of inflammation around the terminal ileum likewise in the sigmoid colon. Interestingly his colonoscopies does show involvement of both sigmoid colon and terminal ileum. There is a question of whether there is a fistula between the 2 segments. I did not detect any of his fluid collections or abscess that can be drained at this point. Clinically the patient does not look toxic or sick and abdominal exam is relatively benign. Suggest switching to IV antibiotics as well as IV steroids for now. Repeat CT to follow the course of the inflammation. If no improvement I think he will need surgery/resection of the inflamed bowel. Certainly if he progresses to a full perforation he'll need surgery. I discussed this with him including the possibility of needing a resection and ileostomy. Vital Signs Vital Signs Date Time Temp Pulse Resp B/P (MAP) Pulse Ox O2 Delivery O2 Flow Rate FiO2 05/23/19 14:40 97.3 89 17 134/66 (88) 96 Room Air Laboratory Data Labs 24H Laboratory Tests 2 05/23/19 10:11: Immature Granulocyte % (Auto) 1.2, Neutrophils (%) (Auto) 85.8H, Lymphocytes (%) (Auto) 6.6L, Monocytes (%) (Auto) 6.0H, Eosinophils (%) (Auto) 0.1, Basophils (%) (Auto) 0.3, Neutrophils # (Auto) 13.7H, Lymphocytes # (Auto) 1.1L, Monocytes # (Auto) 1.0H, Eosinophils # (Auto) 0.0, Basophils # (Auto) 0.0, Nucleated Red Blood Cells % (auto) 0.0, Anion Gap 8, Glomerular Filtration Rate > 60.0, Calcium Level 8.7, Total Bilirubin 0.7#, Direct Bilirubin 0.2, Aspartate Amino Transf (AST/SGOT) 15, Alanine Aminotransferase (ALT/SGPT) 47, Alkaline Phosphatase 68, Total Protein 7.5, Albumin 3.4, Albumin/Globulin Ratio 0.83L, Lipase 78 CBC/BMP Laboratory Tests 05/23/19 10:11 Home Medications Scheduled Amlodipine Besylate (Amlodipine Besylate) 5 Mg Tab, 5 MG PO DAILY, (Reported) Chlorthalidone (Chlorthalidone) 25 Mg Tablet, 25 MG PO DAILY, (Reported) Ciprofloxacin HCl (Ciprofloxacin HCl) 500 Mg Tablet, 500 MG PO BID, (Reported) ON 3RD DAY OF 7 Lisinopril (Lisinopril) 40 Mg Tab, 40 MG PO DAILY, (Reported) Metronidazole (Flagyl) 500 Mg Tablet, 500 MG PO Q8H, (Reported) ON 3RD OF 7 DAYS Paroxetine HCl (Paroxetine HCl) 20 Mg Tablet, 20 MG PO DAILY, (Reported) Prednisone (Prednisone) 10 Mg Tablet, 10 MG PO TAPER, (Reported) Take 4 tabs daily x 7 days, then 3 tabs daily x 7 days, then 2 tabs daily x 7 days, then 1 tab daily x 7 days and stop Allergies Coded Allergies: No Known Allergies (Unverified , 07/18/17) NIKO BURNS MD May 23, 2019 19:12
[2019-05-23 20:00] VITALS: BP 117/62
[2019-05-24] VITALS: BP 121/59
[2019-05-24 04:15] VITALS: BP 115/64
[2019-05-24] MEDS: PIPERACILLIN/TAZOBACTAM SOD 4.5 GM in D5W MINI-BAG PLUS 50 ML IV SCH ×3 (06:07→17:38)
[2019-05-24 06:40] LABS: HEMATOCRIT 38.8 % (42.0-52.0); HEMOGLOBIN 12.5 g/dl (13.5-17.5); MEAN CORPUSCULAR HEMOGLOBIN 28.2 pg (27.0-33.0); MEAN CORPUSCULAR HGB CONC 32.2 g/dl (32.0-36.5); MEAN CORPUSCULAR VOLUME 87.6 fl (80.0-96.0); PLATELET COUNT, AUTOMATED 319 10^3/uL (150-450); RED BLOOD COUNT 4.43 10^6/uL (4.30-6.10); WHITE BLOOD COUNT 13.9 10^3/uL (4.0-10.0)
[2019-05-24 07:19] LABS: BLOOD UREA NITROGEN 22 MG/DL (7-18); CALCIUM LEVEL 8.5 MG/DL (8.5-10.1); CARBON DIOXIDE LEVEL 29 MEQ/L (21-32); CHLORIDE LEVEL 102 MEQ/L (98-107); CREATININE FOR GFR 0.97 MG/DL (0.70-1.30); GLOMERULAR FILTRATION RATE > 60.0 (>60); GLUCOSE, FASTING 104 MG/DL (70-100); SODIUM LEVEL 137 MEQ/L (136-145)
[2019-05-24 07:51] VITALS: BP 111/61
[2019-05-24] MEDS: NS 1,000 ML IV SCH ×2 (08:04→17:24)
[2019-05-24] MEDS: CHLORTHALIDONE 12.5MG PER 1/2 TABLET PO SCH (09:00)
[2019-05-24] MEDS: PARoxetine 20 MG TAB PO SCH (09:00)
[2019-05-24] MEDS: lisinopriL 40 MG TAB PO SCH (09:00)
[2019-05-24] MEDS: methylPREDNISolone INJ 125 MG/2 ML VIAL (J2930) IV SCH (09:00)
[2019-05-24] MEDS: amLODIPine 5 MG TAB PO SCH (09:00)
[2019-05-24 12:00] VITALS: BP 115/62
[2019-05-24 16:00] VITALS: BP 119/63
[2019-05-24 20:00] VITALS: BP 113/62
[2019-05-25] VITALS: BP 102/56
[2019-05-25] MEDS: PIPERACILLIN/TAZOBACTAM SOD 4.5 GM in D5W MINI-BAG PLUS 50 ML IV SCH ×4 (00:01→17:35)
--- NOTE | 2019-05-25 02:03 | IPNPDOC ---
Subjective Date Seen The patient was seen on 05/24/19. Subjective Chief Complaint/HPI He states that he feels much better. Denies abdominal pain. Would like his diet advanced He is disappointed to be in the hospital, as he had planned to leave on a trip today. Constitutional: Denies: Chills, Fever, Malaise Skin: Denies: Rash Pulmonary: Denies: Dyspnea, Cough Cardiovascular: Denies: Chest Pain, Palpitations Gastrointestinal: Reports: Abdominal Pain (resolved); Denies: Nausea, Vomiting, Diarrhea, Constipation Neurological: Denies: Weakness, Numbness Psych: Reports: Mood Normal Objective Physical Examination General Exam: Positive: Alert, Cooperative, No Acute Distress Eye Exam: Positive: Conjunctiva & lids normal; Negative: Sclera icteric ENT Exam: Positive: Pharynx Normal Neck Exam: Positive: Supple; Negative: JVD Chest Exam: Positive: Clear to auscultation, Normal air movement Heart Exam: Positive: Rate Normal, Normal S1, Normal S2 Abdomen Exam: Positive: Normal bowel sounds, Soft, Tenderness (very mild lower abdominal tenderness) Skin Exam: Positive: Nl turgor and temperature; Negative: Rash Neuro Exam: Positive: Normal Gait, Normal Speech Psych Exam: Positive: Mental status NL, Mood NL Assessment /Plan Problems (1) Colitis with complication Problem Text: General surgery plans repeat CT 05/25, to help guide care. Clinically, he looks well. He is taking PO fluids, so I decreased his IVFs. On abx. Plan/VTE VTE Prophylaxis Ordered?: Yes VS, I&O, 24H, Fishbone Vital Signs/I&O Vital Signs Date Time Temp Pulse Resp B/P (MAP) Pulse Ox O2 Delivery O2 Flow Rate FiO2 05/25/19 00:00 97.9 71 16 102/56 (71) 98 Room Air I&O- Last 24 Hours up to 6 AM 05/25/19 06:00 Intake Total 3460 ml Output Total 2950 ml Balance 510 ml Laboratory Data 24H LABS Laboratory Tests 2 05/24/19 06:05: Nucleated Red Blood Cells % (auto) 0.0, Anion Gap 6L, Glomerular Filtration Rate > 60.0, Calcium Level 8.5 CBC/BMP Laboratory Tests 05/24/19 06:05 ANDERSON LORD DO May 25, 2019 02:03
[2019-05-25] MEDS: NS 1,000 ML IV SCH (04:43)
[2019-05-25 06:51] LABS: HEMATOCRIT 38.8 % (42.0-52.0); HEMOGLOBIN 12.4 g/dl (13.5-17.5); MEAN CORPUSCULAR HEMOGLOBIN 28.4 pg (27.0-33.0); PLATELET COUNT, AUTOMATED 310 10^3/uL (150-450); RED BLOOD COUNT 4.36 10^6/uL (4.30-6.10); WHITE BLOOD COUNT 12.9 10^3/uL (4.0-10.0)
[2019-05-25 07:12] LABS: BLOOD UREA NITROGEN 18 MG/DL (7-18); CALCIUM LEVEL 8.4 MG/DL (8.5-10.1); CARBON DIOXIDE LEVEL 29 MEQ/L (21-32); CHLORIDE LEVEL 102 MEQ/L (98-107); CREATININE FOR GFR 1.11 MG/DL (0.70-1.30); GLOMERULAR FILTRATION RATE > 60.0 (>60); GLUCOSE, FASTING 92 MG/DL (70-100); SODIUM LEVEL 136 MEQ/L (136-145)
[2019-05-25] MEDS ORDERED: ISOVUE-370 76% 100ML VIAL (Q9967) As Ordered ONE (07:36)
[2019-05-25] MEDS ORDERED: VoLumen 0.1% SUSPENSION 450ML BOTTLE As Ordered ONE (07:40)
[2019-05-25] MEDS ORDERED: GLUCAGON FOR INJ 1 MG VIAL (J1610) As Ordered ONE (07:41)
[2019-05-25 08:00] VITALS: BP 106/59
[2019-05-25] MEDS: PARoxetine 20 MG TAB PO SCH (09:00)
[2019-05-25] MEDS: amLODIPine 5 MG TAB PO SCH (09:00)
[2019-05-25] MEDS: CHLORTHALIDONE 12.5MG PER 1/2 TABLET PO SCH ×2 (09:20→09:22)
[2019-05-25] MEDS: lisinopriL 40 MG TAB PO SCH (09:21)
[2019-05-25] MEDS: methylPREDNISolone INJ 125 MG/2 ML VIAL (J2930) IV SCH (09:22)
--- NOTE | 2019-05-25 10:56 | REP ---
CT Enterography: With IV and oral contrast. History: Ileitis, Crohn disease. Comparison study: Comparison CT study abdomen and pelvis May 23, 2019. CT enterography Technique: The patient ingested oral Volumen for PO contrast per protocol. 0.6 mg of intravenous glucagon is administered. 100 ml of Isovue 370 is given intravenously for intravenous contrast. Helical scanning is acquired. Arterial phase and delayed phase imaging was acquired. Thick slab coronal and sagittal MIP images are generated. In addition coronal and sagittal multiplanar re-formation images are generated and reviewed along with axial images. CT enterography findings: Digital preliminary bead cutter radiograph is unremarkable. There are a few air-fluid levels in the proximal and distal colon. Axial CT images are quite similar to the CT study from May 23, 2019. There is fatty infiltration of the liver again noted. There is central abdominal mesenteric fat streaking extending into the right pericolic and to a lesser extent left pericolic gutters similar to the 23 May study. There is mural thickening in the distal segment of the terminal ileum. There is an adjacent air and fluid collection along the inferior and left lateral border of the distal ileum. This francis-ileal air and fluid collection is slightly larger. It measures approximately 9 mm in greatest transverse dimension by 5.3 cm anterior to posterior by 4 cm oblique craniocaudal. There is some adjacent contrast enhancement and edema. Inferior to this there is mural thickening along the segment of sigmoid colon where there is minimal diverticulosis. There is an air containing pericolonic bubble which may be a diverticulum and some fibrosis is seen extending from this upwards to the involved ileal loop. It does appear that the most extensive inflammation is around the distal ileum but it is difficult to exclude a diverticular process with fistulization to the ileal soft tissue. A normal appendix is again seen. There is no evidence of distant free air. There is no evidence of proximal obstruction. Impression: Inflammation in the central abdomen with mural thickening in the distal ileum and a para-ileal air and fluid collection consistent with localized abscess along the serosal wall of the inflamed ileum. Question related to sigmoid diverticulitis versus primary inflammation of the ileum. The collection of air and fluid is very slightly larger than on May 23, 2019. Electronically Signed by Kentrell Keita MD 05/25/2019 11:43 A
--- NOTE | 2019-05-25 13:02 | IPNPDOC ---
Text Note Date of Service The patient was seen on 05/25/19. NOTE Patient is seen today and I reviewed his CT enterography that was just done this morning. He reports no abdominal pain. He's been having multiple loose stools but is nonbloody. No fevers or chills being recorded. He is hemodynamically stable. He wishes to eat and go home if possible. Review of his vitals shows no febrile episodes. None tachycardic. On examination he sitting on the bed, looks comfortable. He is able to get out of bed and walk around the room very comfortably. Abdominal exam is benign. No discernible distention. He reports a very minimal tenderness if at all only on deep palpation in between the umbilicus and pubis without any radiation. No rebound or guarding. In the CT enterography done today. I reviewed the images with him. I reviewed the images with our radiologist. There is a tiny collection along the wall of the terminal ileum about 9 mm in depth to a length of about 5 cm. There is no drainable fluid collection or abscess at this time. There is extensive mesenteric edema, transmural edema of the small bowel and I feel secondarily the sigmoid colon. He does have some mild diverticulosis. Impression and plan Terminal ileitis, sigmoid colitis most likely related to Crohn's disease flare up Contained perforation or maybe subserosal abscess formation at the level of the terminal ileum So Im struggling with this as the patient does not show any signs sepsis, peritonitis advised need for surgery at this point. I feel that following his course he probably had some worsening or maybe even a contained perforation by Friday. By the time he showed up Friday he was clinically getting better. Right now he is asymptomatic with our current medical management with steroids and IV antibiotics. He is so far tolerating clear liquids. He is feeling hungry and wants to eat. If I bring him to the operating room he would require resection of the inflamed portion of the terminal ileum and most likely will need a temporary ileostomy. I reviewed with several scenarios that may happen. The inflammation may improve to a point that it is safe to switch him to oral steroids and antibiotics at some point. This may eventually developed into a contained abscess which can be drained percutaneously which may or may not fully resolve and form a fistula. Either way that will be better than an ileostomy. The cure rate with an and contained perforation at which point he will need the same surgery which is a resection and ileostomy. After discussing all this aching and is prudent to keep him here in the hospital for IV antibiotics and steroids. He'll see if he tolerates some soft diet. I'm planning to repeat CT on Friday to further follow-up on his involving process. VS,Fishbone, I+O VS, Fishbone, I+O Laboratory Tests 05/25/19 06:28 Vital Signs Date Time Temp Pulse Resp B/P (MAP) Pulse Ox O2 Delivery O2 Flow Rate FiO2 05/25/19 09:00 72 106/59 05/25/19 08:00 97.4 18 99 Room Air I&O- Last 24 Hours up to 6 AM 05/25/19 06:00 Intake Total 3510 ml Output Total 3400 ml Balance 110 ml NIKO BURNS MD May 25, 2019 13:02
[2019-05-25 16:00] VITALS: BP 110/58
[2019-05-25 20:00] VITALS: BP 126/68
[2019-05-26] VITALS: BP 124/64
[2019-05-26] MEDS: PIPERACILLIN/TAZOBACTAM SOD 4.5 GM in D5W MINI-BAG PLUS 50 ML IV SCH ×3 (00:51→11:39)
--- NOTE | 2019-05-26 02:20 | IPNPDOC ---
Subjective Date Seen The patient was seen on 05/25/19. Subjective Chief Complaint/HPI Patient is seen after eating a soft diet for lunch, states he is feeling much better. He has had multiple loose stools, but otherwise is feeling fairly well, denies any significant stomach discomfort. He is frustrated to need to be in the hospital, but actually now that he has been cleared for a diet order, his biggest complaint is his poor television quality. Constitutional: Denies: Chills, Fever, Malaise Pulmonary: Denies: Dyspnea, Cough Cardiovascular: Denies: Chest Pain Gastrointestinal: Reports: Diarrhea; Denies: Nausea, Vomiting, Abdominal Pain, Constipation Neurological: Denies: Weakness Psych: Reports: Mood Normal Objective Physical Examination General Exam: Positive: Alert, Cooperative, No Acute Distress Eye Exam: Positive: Conjunctiva & lids normal; Negative: Sclera icteric ENT Exam: Positive: Pharynx Normal Neck Exam: Positive: Supple; Negative: JVD Chest Exam: Positive: Clear to auscultation, Normal air movement Heart Exam: Positive: Rate Normal, Normal S1, Normal S2 Abdomen Exam: Positive: Normal bowel sounds, Soft, Tenderness (very mild lower abdominal tenderness) Skin Exam: Positive: Nl turgor and temperature; Negative: Rash Neuro Exam: Positive: Normal Gait, Normal Speech Psych Exam: Positive: Mental status NL, Mood NL Assessment /Plan Problems (1) Colitis with complication Problem Text: 05/25 -- Repeat abdominal CT planned for 3 days, if not worse in the intervening days. He has a small closed performation/fistula/developing abscess, seen on imaging. He actually has been feeling pretty well, and is tolerating his diet. He hopes to avoid surgery, and general surgery is willing to follow this because he looks so good. On Zosyn and Solumedrol. Morphine ordered for pain control, but he hasn't required it. He does report chronic diarrhea, and it is felt that his underlying disease process is some kind of inflammatory bowel disease, like Crohn's. General surgery plans repeat CT 05/25, to help guide care. Clinically, he looks well. He is taking PO fluids, so I decreased his IVFs. On abx. (2) Depression Problem Text: Continue Paxil. (3) Hypertension Problem Text: Continued on amlodipine, chlorthalidone, and lisinopril. Plan/VTE VTE Prophylaxis Ordered?: Yes VS, I&O, 24H, Fishbone Vital Signs/I&O Vital Signs Date Time Temp Pulse Resp B/P (MAP) Pulse Ox O2 Delivery O2 Flow Rate FiO2 05/26/19 00:00 99.8 80 18 124/64 (84) 97 Room Air I&O- Last 24 Hours up to 6 AM 05/26/19 05:59 Intake Total 3175 ml Output Total 2825 ml Balance 350 ml Laboratory Data 24H LABS Laboratory Tests 2 05/25/19 06:28: Nucleated Red Blood Cells % (auto) 0.0, Anion Gap 5L, Glomerular Filtration Rate > 60.0, Calcium Level 8.4L CBC/BMP Laboratory Tests 05/25/19 06:28 ANDERSON LORD DO May 26, 2019 02:20
[2019-05-26] MEDS: CIPROFLOXACIN 500 MG TAB PO SCH ×2 (06:00→17:56)
[2019-05-26 07:16] LABS: HEMATOCRIT 40.6 % (42.0-52.0); HEMOGLOBIN 13.5 g/dl (13.5-17.5); MEAN CORPUSCULAR HEMOGLOBIN 28.8 pg (27.0-33.0); MEAN CORPUSCULAR HGB CONC 33.3 g/dl (32.0-36.5); MEAN CORPUSCULAR VOLUME 86.6 fl (80.0-96.0); PLATELET COUNT, AUTOMATED 341 10^3/uL (150-450); RED BLOOD COUNT 4.69 10^6/uL (4.30-6.10); WHITE BLOOD COUNT 12.1 10^3/uL (4.0-10.0)
[2019-05-26 07:37] LABS: BLOOD UREA NITROGEN 16 MG/DL (7-18); CALCIUM LEVEL 8.6 MG/DL (8.5-10.1); CARBON DIOXIDE LEVEL 29 MEQ/L (21-32); CHLORIDE LEVEL 102 MEQ/L (98-107); CREATININE FOR GFR 1.04 MG/DL (0.70-1.30); GLOMERULAR FILTRATION RATE > 60.0 (>60); GLUCOSE, FASTING 94 MG/DL (70-100); POTASSIUM SERUM 3.7 MEQ/L (3.5-5.1); SODIUM LEVEL 138 MEQ/L (136-145)
[2019-05-26 08:00] VITALS: BP 122/78
[2019-05-26] MEDS: CHLORTHALIDONE 12.5MG PER 1/2 TABLET PO SCH (09:27)
[2019-05-26] MEDS: lisinopriL 40 MG TAB PO SCH (09:27)
[2019-05-26] MEDS: amLODIPine 5 MG TAB PO SCH (09:28)
[2019-05-26] MEDS: PARoxetine 20 MG TAB PO SCH (09:28)
[2019-05-26] MEDS: methylPREDNISolone INJ 125 MG/2 ML VIAL (J2930) IV SCH (09:29)
--- NOTE | 2019-05-26 12:20 | IPNPDOC ---
Text Note Date of Service The patient was seen on 05/26/19. NOTE Patient is seen today. I started him on soft foods yesterday. He is tolerated this without any side effects. He denies any abdominal bloating, cramping, nausea, vomiting. Food is staying down. He has very minimal discomfort if any. He has been afebrile. He still has some loose nonbloody stools. Vital signs were reviewed. Afebrile. Heart rate in the mid 80s. Blood pressure 05 26/78. On examination he laying down on bed and looks comfortable. He is able to get out of bed and walk around the room very comfortably. Abdominal exam is benign. No discernible distention. He reports a very minimal tenderness if at all only on deep palpation in between the umbilicus and pubis without any radiation. No rebound or guarding. Impression and plan Terminal ileitis, sigmoid colitis most likely related to Crohn's disease flare up Contained perforation or maybe subserosal abscess formation at the level of the terminal ileum He continues to do well and is tolerating soft diet. I told him he should be maintained on soft diet for a good amount of time until we are sure that the i nflammation settled in. He is comfortable with that. I think I will switch him to oral antibiotics since is tolerating his medications. Plan for repeat CT on Friday. VS,Teresa, I+O VS, Teresa, I+O Laboratory Tests 05/26/19 06:57 Vital Signs Date Time Temp Pulse Resp B/P (MAP) Pulse Ox O2 Delivery O2 Flow Rate FiO2 05/26/19 09:28 86 122/78 05/26/19 08:00 97.6 18 94 Room Air I&O- Last 24 Hours up to 6 AM 05/26/19 06:00 Intake Total 3175 ml Output Total 2375 ml Balance 800 ml NIKO BURNS MD May 26, 2019 12:20
[2019-05-26] MEDS: metroNIDAZOLE (FLAGYL) 500 MG TAB PO SCH ×2 (14:00→22:04)
[2019-05-26 16:00] VITALS: BP 112/53
[2019-05-26 20:00] VITALS: BP 131/64
[2019-05-27] VITALS: BP 119/74
--- NOTE | 2019-05-27 02:23 | IPNPDOC ---
Subjective Date Seen The patient was seen on 05/26/19. Subjective Chief Complaint/HPI Transitioned to PO cipro and Flagyl, tolerating this and a soft diet. He continues to have diarrhea, with no visible blood. Stomach isn't painful. He hopes to avoid surgical intervention in the next couple days. Constitutional: Denies: Chills, Fever Pulmonary: Denies: Dyspnea, Cough Cardiovascular: Reports: Palpitations; Denies: Chest Pain Gastrointestinal: Reports: Diarrhea; Denies: Nausea, Vomiting, Abdominal Pain, Constipation, Melena, Hematochezia Musculoskeletal: Reports: Back Pain (mild) Psych: Reports: Mood Normal Objective Physical Examination General Exam: Positive: Alert, Cooperative, No Acute Distress Eye Exam: Positive: Conjunctiva & lids normal; Negative: Sclera icteric ENT Exam: Positive: Pharynx Normal Neck Exam: Positive: Supple; Negative: JVD Chest Exam: Positive: Clear to auscultation, Normal air movement Heart Exam: Positive: Rate Normal, Normal S1, Normal S2 Abdomen Exam: Positive: Normal bowel sounds, Soft, Tenderness (very mild lower abdominal tenderness) Skin Exam: Positive: Nl turgor and temperature; Negative: Rash Neuro Exam: Positive: Normal Gait, Normal Speech Psych Exam: Positive: Mental status NL, Mood NL Assessment /Plan Problems (1) Colitis with complication Problem Text: 05/26 -- tolerating Cipro and Flagyl, afebrile. At some point in the future, he will need another colonoscopy; discussed this with the patient. 05/25 -- Repeat abdominal CT planned for 3 days, if not worse in the intervening days. He has a small closed performation/fistula/developing abscess, seen on imaging. He actually has been feeling pretty well, and is tolerating his diet. He hopes to avoid surgery, and general surgery is willing to follow this because he looks so good. On Zosyn and Solumedrol. Morphine ordered for pain control, but he hasn't required it. He does report chronic diarrhea, and it is felt that his underlying disease process is some kind of inflammatory bowel disease, like Crohn's. General surgery plans repeat CT 05/25, to help guide care. Clinically, he looks well. He is taking PO fluids, so I decreased his IVFs. On abx. (2) Depression Problem Text: Continue Paxil. (3) Hypertension Problem Text: Continued on amlodipine, chlorthalidone, and lisinopril. Plan/VTE VTE Prophylaxis Ordered?: Yes VS, I&O, 24H, Fishbone Vital Signs/I&O Vital Signs Date Time Temp Pulse Resp B/P (MAP) Pulse Ox O2 Delivery O2 Flow Rate FiO2 05/27/19 00:00 97.6 80 16 119/74 (89) 99 Room Air I&O- Last 24 Hours up to 6 AM 05/27/19 06:00 Intake Total 1930 ml Output Total 1775 ml Balance 155 ml Laboratory Data 24H LABS Laboratory Tests 2 05/26/19 06:57: Nucleated Red Blood Cells % (auto) 0.0, Anion Gap 7L, Glomerular Filtration Rate > 60.0, Calcium Level 8.6 CBC/BMP Laboratory Tests 05/26/19 06:57 ANDERSON LORD DO May 27, 2019 02:23
[2019-05-27] MEDS: metroNIDAZOLE (FLAGYL) 500 MG TAB PO SCH ×3 (06:18→22:28)
[2019-05-27] MEDS: CIPROFLOXACIN 500 MG TAB PO SCH ×2 (06:18→18:58)
[2019-05-27 08:00] VITALS: BP 117/63
[2019-05-27] MEDS: methylPREDNISolone INJ 125 MG/2 ML VIAL (J2930) IV SCH (08:04)
[2019-05-27] MEDS: amLODIPine 5 MG TAB PO SCH (08:05)
[2019-05-27] MEDS: PARoxetine 20 MG TAB PO SCH (08:06)
[2019-05-27] MEDS: CHLORTHALIDONE 12.5MG PER 1/2 TABLET PO SCH (08:06)
[2019-05-27 08:12] LABS: HEMATOCRIT 42.6 % (42.0-52.0); HEMOGLOBIN 13.8 g/dl (13.5-17.5); MEAN CORPUSCULAR HEMOGLOBIN 28.6 pg (27.0-33.0); MEAN CORPUSCULAR HGB CONC 32.4 g/dl (32.0-36.5); MEAN CORPUSCULAR VOLUME 88.2 fl (80.0-96.0); PLATELET COUNT, AUTOMATED 324 10^3/uL (150-450); RED BLOOD COUNT 4.83 10^6/uL (4.30-6.10); WHITE BLOOD COUNT 9.4 10^3/uL (4.0-10.0)
[2019-05-27] MEDS: lisinopriL 40 MG TAB PO SCH (08:13)
[2019-05-27 08:37] LABS: BLOOD UREA NITROGEN 19 MG/DL (7-18); CALCIUM LEVEL 8.8 MG/DL (8.5-10.1); CARBON DIOXIDE LEVEL 32 MEQ/L (21-32); CHLORIDE LEVEL 100 MEQ/L (98-107); CREATININE FOR GFR 1.15 MG/DL (0.70-1.30); GLOMERULAR FILTRATION RATE > 60.0 (>60); GLUCOSE, FASTING 94 MG/DL (70-100); POTASSIUM SERUM 3.4 MEQ/L (3.5-5.1); SODIUM LEVEL 138 MEQ/L (136-145)
--- NOTE | 2019-05-27 09:27 | IPNPDOC ---
Subjective Date Seen The patient was seen on 05/27/19. Subjective Chief Complaint/HPI No complaints - No abd pain. No n/v. Tolerating regular diet. Normal BMs Constitutional: Denies: Chills, Fever Pulmonary: Denies: Dyspnea, Cough Cardiovascular: Denies: Chest Pain, Palpitations, Orthopnea Gastrointestinal: Denies: Nausea, Vomiting, Abdominal Pain, Diarrhea, Constipation, Melena, Hematochezia Objective Physical Examination General Exam: Positive: Alert, Cooperative, No Acute Distress Chest Exam: Positive: Clear to auscultation, Normal air movement; Negative: Rhonchi, Wheezing, Diminished Heart Exam: Positive: Rate Normal, Normal S1, Normal S2; Negative: Murmurs Abdomen Exam: Positive: Normal bowel sounds, Soft; Negative: Tenderness Extremity Exam: Negative: Edema Neuro Exam: Positive: Normal Speech Psych Exam: Positive: Mental status NL Assessment /Plan Problems (1) Colitis with complication Problem Text: 05/27 - Symptoms improved with IV Solumedrol 60 mg IV daily and Cipro/Vanco. F/U CT planned for tomorrow per Dr. Bean recommendations 05/26 -- tolerating Cipro and Flagyl, afebrile. At some point in the future, he will need another colonoscopy; discussed this with the patient. 05/25 -- Repeat abdominal CT planned for 3 days, if not worse in the intervening days. He has a small closed performation/fistula/developing abscess, seen on imaging. He actually has been feeling pretty well, and is tolerating his diet. He hopes to avoid surgery, and general surgery is willing to follow this because he looks so good. On Zosyn and Solumedrol. Morphine ordered for pain control, but he hasn't required it. He does report chronic diarrhea, and it is felt that his underlying disease process is some kind of inflammatory bowel disease, like Crohn's. General surgery plans repeat CT 05/25, to help guide care. Clinically, he looks well. He is taking PO fluids, so I decreased his IVFs. On abx. (2) Depression Problem Text: Continue Paxil. (3) Hypertension Problem Text: Continued on amlodipine, chlorthalidone, and lisinopril. Plan/VTE VTE Prophylaxis Ordered?: Yes VS, I&O, 24H, Fishbone Vital Signs/I&O Vital Signs Date Time Temp Pulse Resp B/P (MAP) Pulse Ox O2 Delivery O2 Flow Rate FiO2 05/27/19 08:05 82 117/63 05/27/19 08:00 97.7 14 97 Room Air I&O- Last 24 Hours up to 6 AM 05/27/19 05:59 Intake Total 1930 ml Output Total 2075 ml Balance -145 ml Laboratory Data 24H LABS Laboratory Tests 2 05/27/19 07:52: Nucleated Red Blood Cells % (auto) 0.0, Anion Gap 6L, Glomerular Filtration Rate > 60.0, Calcium Level 8.8 CBC/BMP Laboratory Tests 05/27/19 07:52 JOSE THAKUR PA-C May 27, 2019 09:27
[2019-05-27] MEDS: POTASSIUM CHLORIDE 10 MEQ SR TABLET PO SCH ×2 (11:09→14:42)
[2019-05-27 16:00] VITALS: BP 129/65
[2019-05-27 20:00] VITALS: BP 144/61
[2019-05-27 23:53] VITALS: BP 126/78
[2019-05-28] MEDS: metroNIDAZOLE (FLAGYL) 500 MG TAB PO SCH ×2 (05:28→14:12)
[2019-05-28] MEDS: CIPROFLOXACIN 500 MG TAB PO SCH (05:29)
[2019-05-28] MEDS: GASTROGRAFIN SOLUTION 30ML PO SCH ×2 (06:48→07:28)
[2019-05-28 07:23] LABS: HEMATOCRIT 44.2 % (42.0-52.0); HEMOGLOBIN 14.7 g/dl (13.5-17.5); MEAN CORPUSCULAR HEMOGLOBIN 29.3 pg (27.0-33.0); MEAN CORPUSCULAR HGB CONC 33.3 g/dl (32.0-36.5); PLATELET COUNT, AUTOMATED 364 10^3/uL (150-450); RED BLOOD COUNT 5.02 10^6/uL (4.30-6.10); WHITE BLOOD COUNT 9.8 10^3/uL (4.0-10.0)
[2019-05-28 07:49] LABS: BLOOD UREA NITROGEN 20 MG/DL (7-18); CALCIUM LEVEL 9.1 MG/DL (8.5-10.1); CARBON DIOXIDE LEVEL 31 MEQ/L (21-32); CHLORIDE LEVEL 99 MEQ/L (98-107); CREATININE FOR GFR 1.14 MG/DL (0.70-1.30); GLOMERULAR FILTRATION RATE > 60.0 (>60); GLUCOSE, FASTING 88 MG/DL (70-100); POTASSIUM SERUM 3.8 MEQ/L (3.5-5.1); SODIUM LEVEL 135 MEQ/L (136-145)
[2019-05-28 08:00] VITALS: BP 127/73
[2019-05-28] MEDS ORDERED: ISOVUE-370 76% 100ML VIAL (Q9967) As Ordered ONE (08:15)
--- NOTE | 2019-05-28 09:16 | REP ---
CT of the abdomen and pelvis with IV and oral contrast: Comparison is 05/25/2019 in this patient with known Crohn's ileitis. There is a focal extraluminal air collection with a small air-fluid level along the wall of the distal ileum measuring 5.3 cm in length, similar in size to the prior study. The induration of the adjacent mesenteric fat along this lesion has decreased. I suspect that this lesion is within the wall of the distal ileum. A loop of sigmoid colon colitis and near this air collection. There are a few diverticula within the sigmoid colon. There is very slight induration of the mesenteric fat interposed between the sigmoid colon and ileal wall air collection. There is no free intraperitoneal air. There is no ascites. The visualized lung santos are unremarkable. The hepatic parenchyma, gallbladder, pancreas, spleen, adrenals, kidneys, abdominal aorta are unremarkable. Pelvis: Terminal ileitis with a contained extraluminal air collection in the wall of the distal ileum, as above described. The appendix is unremarkable. There is no adenopathy or ascites. Impression: Focal air collection containing a small air-fluid level in the wall of the distal ileum with induration of the adjacent mesenteric fat compatible with contained perforation/fistula. The mesenteric fat induration has decreased. Adjacent loop of sigmoid colon containing diverticula. Mild induration of the intervening mesenteric fat. The mesenteric fat induration has decreased. There is no pneumoperitoneum or ascites. Electronically Signed by Storm Restrepo MD 05/28/2019 09:09 A
[2019-05-28] MEDS: CHLORTHALIDONE 12.5MG PER 1/2 TABLET PO SCH (09:24)
[2019-05-28] MEDS: methylPREDNISolone INJ 125 MG/2 ML VIAL (J2930) IV SCH (09:24)
[2019-05-28] MEDS: PARoxetine 20 MG TAB PO SCH (09:24)
[2019-05-28 09:25] VITALS: BP 127/73
[2019-05-28] MEDS: amLODIPine 5 MG TAB PO SCH (09:25)
[2019-05-28] MEDS: lisinopriL 40 MG TAB PO SCH (09:25)
== END 2019-05-28 14:32 | disposition left against medical advice (07) | DRG 245 ==
LOC: M ED 09:30 → M ED INP 13:29 → ENRESERV 13:49 → M PED 14:38
PROVIDERS: ADMIT Student in an Organized Health Care Education/Training Program; ATTEND Family Medicine
DX: K50.014 Crohn's disease of small intestine with abscess (principal); K63.1 Perforation of intestine (nontraumatic); Z79.899 Other long term (current) drug therapy; I10 Essential (primary) hypertension; Z79.52 Long term (current) use of systemic steroids; F32.9 Major depressive disorder, single episode, unspecified

== ENCOUNTER 2019-06-11 17:55 | Inpatient (IN) | payer BC ==
[~2019-06-11] VITALS: Ht 180.3 cm; Wt 114.4 kg
[~2019-06-11 17:55] MED LIST changes: +CIPR500T39 PO
[2019-06-11] MEDS ORDERED: NS 1,000 ML IV ONE (18:30)
[2019-06-11] MEDS ORDERED: MORPHINE 4 MG/ML 1ML VIAL/SYRINGE (J2270) IV ONE (18:30)
[2019-06-11] MEDS ORDERED: KETOROLAC 30 MG/ML VIAL (J1885) IV ONE (18:45)
[2019-06-11 18:55] LABS: BASO # 0.1 10^3/uL (0.0-0.2); BASO % 0.4 % (0.0-1.0); EOS % 0.1 % (0.0-3.0); HEMATOCRIT 40.2 % (42.0-52.0); HEMOGLOBIN 13.4 g/dl (13.5-17.5); LYMPH # 2.3 10^3/uL (1.5-5.0); LYMPH % 14.2 % (24.0-44.0); MEAN CORPUSCULAR HEMOGLOBIN 28.6 pg (27.0-33.0); MEAN CORPUSCULAR HGB CONC 33.3 g/dl (32.0-36.5); MEAN CORPUSCULAR VOLUME 85.7 fl (80.0-96.0); MONO % 5.9 % (0.0-5.0); NEUTROPHILS # 12.4 10^3/uL (1.5-8.5); NEUTROPHILS % 77.8 % (36.0-66.0); PLATELET COUNT, AUTOMATED 334 10^3/uL (150-450); RED BLOOD COUNT 4.69 10^6/uL (4.30-6.10)
[2019-06-11] MEDS ORDERED: ISOVUE-370 76% 100ML VIAL (Q9967) As Ordered ONE (18:55)
[2019-06-11 19:18] LABS: ALBUMIN 3.4 GM/DL (3.2-5.2); BILIRUBIN,DIRECT 0.1 MG/DL (0.0-0.2); BILIRUBIN,TOTAL 0.2 MG/DL (0.2-1.0); TOTAL PROTEIN 6.7 GM/DL (6.4-8.2)
[2019-06-11] MEDS ORDERED: NS 2,270 ML in IV 1 EA IV ONE (19:30)
--- NOTE | 2019-06-11 19:40 | REPVR ---
PROCEDURE INFORMATION: Exam: CT Abdomen And Pelvis With Contrast Exam date and time: 06/11/2019 7:03 PM Age: 34 years old Clinical indication: Abdominal pain; Localized; Right lower quadrant (rlq); Additional info: Rlq pain TECHNIQUE: Imaging protocol: Computed tomography of the abdomen and pelvis with intravenous contrast. Axial, coronal and sagittal reformatted images were created and reviewed. Radiation optimization: All CT scans at this facility use at least one of these dose optimization techniques: automated exposure control; mA and/or kV adjustment per patient size (includes targeted exams where dose is matched to clinical indication); or iterative reconstruction. Contrast material: ISOVUE 370; Contrast volume: 100 ml; Contrast route: IV; COMPARISON: CT ABD PELVIS WITH CONTRAST 05/28/2019 8:32 AM FINDINGS: Liver: Unremarkable. Gallbladder and bile ducts: No radiodense gallstones. No biliary ductal dilatation. Pancreas: Unremarkable. Spleen: Unremarkable. Adrenals: Unremarkable. Kidneys and ureters: 1.6 x 1.1 cm low-density left renal lesion, likely a complex cyst. No radiodense calculi. No hydronephrosis. Stomach and bowel: Mild localized sigmoid wall thickening with associated perisigmoid edema, similar to prior. Multiple mildly thickened loops of small bowel, most notably in the right lower quadrant, increased since the prior study. 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 No obstruction. No pneumatosis. Appendix: Normal. Intraperitoneal space: Trace ascites. Moderate mesenteric edema. No organized fluid collection. Trace free intraperitoneal air, new since the prior study. Vasculature: Unremarkable. No aneurysm. Lymph nodes: No pathologically enlarged lymph nodes. Bladder: Unremarkable. Reproductive: Unremarkable. Bones/joints: No acute osseous abnormality. Mild degenerative changes. Soft tissues: Small, fat containing umbilical hernias. IMPRESSION: 1. Worsening enterocolitis with associated fistula formation, consistent with Crohn's exacerbation. 2. New trace free intraperitoneal air, compatible with perforation, likely at the level of the distal ileum. 3. Additional findings, as above. Electronically signed by: Sd Bruner On 06/11/2019 19:40:10 PM
[2019-06-11] MEDS ORDERED: MORPHINE 2 MG/ML 1ML VIAL (J2270) IV PRN (20:15)
[2019-06-11] MEDS ORDERED: PERCOCET 5MG/325MG TAB PO PRN (20:15)
[2019-06-11] MEDS ORDERED: ONDANSETRON 4MG/2ML VIAL (J2405) IV PRN (20:15)
[2019-06-11] MEDS ORDERED: ACETAMINOPHEN TAB 650MG DOSE (2X325MG) PO PRN (20:15)
[2019-06-11] MEDS ORDERED: CHLO125TA PO (20:34)
[2019-06-11] MEDS: PIPERACILLIN/TAZOBACTAM SOD 3.375 GM in D5W MINI-BAG PLUS 50 ML IV SCH (21:20)
[2019-06-12] VITALS: BP 140/83
[2019-06-12] MEDS: LR 1,000 ML IV SCH ×4 (00:11→20:04)
[2019-06-12] MEDS: KETOROLAC 30 MG/ML VIAL (J1885) IV PRN ×4 (00:52→21:41)
[2019-06-12] MEDS: PIPERACILLIN/TAZOBACTAM SOD 3.375 GM in D5W MINI-BAG PLUS 50 ML IV SCH ×4 (03:20→19:48)
[2019-06-12] MEDS: PERCOCET 5MG/325MG TAB PO PRN ×3 (03:22→19:48)
[2019-06-12 06:00] VITALS: BP 125/69
[2019-06-12 06:50] LABS: BASO % 0.2 % (0.0-1.0); EOS % 0.1 % (0.0-3.0); HEMATOCRIT 35.5 % (42.0-52.0); LYMPH # 1.1 10^3/uL (1.5-5.0); LYMPH % 6.7 % (24.0-44.0); MEAN CORPUSCULAR HEMOGLOBIN 27.9 pg (27.0-33.0); MEAN CORPUSCULAR HGB CONC 31.8 g/dl (32.0-36.5); MEAN CORPUSCULAR VOLUME 87.7 fl (80.0-96.0); MONO # 0.6 10^3/uL (0.0-0.8); MONO % 3.7 % (0.0-5.0); NEUTROPHILS # 14.1 10^3/uL (1.5-8.5); NEUTROPHILS % 88.4 % (36.0-66.0); RED BLOOD COUNT 4.05 10^6/uL (4.30-6.10); WHITE BLOOD COUNT 15.9 10^3/uL (4.0-10.0)
[2019-06-12 07:05] LABS: BLOOD UREA NITROGEN 18 MG/DL (7-18); CARBON DIOXIDE LEVEL 29 MEQ/L (21-32); CHLORIDE LEVEL 100 MEQ/L (98-107); CREATININE FOR GFR 1.04 MG/DL (0.70-1.30); GLOMERULAR FILTRATION RATE > 60.0 (>60); GLUCOSE, FASTING 87 MG/DL (70-100); POTASSIUM SERUM 3.8 MEQ/L (3.5-5.1); SODIUM LEVEL 134 MEQ/L (136-145)
[2019-06-12 07:10] LABS: HEMOGLOBIN 11.3 g/dl (13.5-17.5); PLATELET COUNT, AUTOMATED 230 10^3/uL (150-450)
--- NOTE | 2019-06-12 08:43 | HPEPDOC ---
General Surgery H&P Date of Admission Jun 11, 2019 Attending Physician: NIKO BURNS MD History and Physical CHIEF COMPLAINT: abdominal pain HISTORY OF PRESENT ILLNESS: Patient is known to me from his previous admission. He is being suspected Crohn's disease but has been relatively asymptomatic until this prior episodes. He has had severe terminal ileitis, sigmoid colitis with a possible fistula in between those 2 bowels versus intra muscular abscess at the terminal ileum or contained perforation of the terminal ileum. We were successful in managing this nonoperatively during his past admission on May 23 until 05/28/2019. He did well at that time. His pain resolved likewise his leukocytosis. He was placed on oral antibiotics as well as oral steroid taper. He followed up with me and I saw him last week and he continues to do well. Patient reports he was doing well up until the evening of 06/11/2019 when he is onset of right-sided lower abdominal pain associated with nausea. He was afebrile at that time. The pain did not immediately resolve as he presented to the emergency department as he was previously told by me. In the urinary was worked uptolerated and subsequently admitted by me. ALLERGIES: Please see below. HOME MEDICATIONS: Please see below. PAST MEDICAL HISTORY: 1. Suspected Crohn's disease of the small bowel and colon. PAST SURGICAL HISTORY: 1. Colonoscopy in 2010 and 2017 PERSONAL/SOCIAL HISTORY: Denies smoking, alcohol use, or recreational drug use. REVIEW OF SYSTEMS: GENERAL: He was doing well after the hospitalization as per the HPI. Denies any abnormal weight loss. HEENT: Denies blurred vision and double vision. Denies ear symptoms. Denies hoarseness. NECK: Denies any neck pain. CARDIOVASCULAR: Denies chest pain and palpitations. MUSCULOSKELETAL: Denies arthralgias, back pain and thrombophlebitis. SKIN: Denies rash. NEUROLOGIC: Denies headache. PSYCHIATRIC reports some mild anxiety. ENDOCRINE: Denies thyroid disease. HEMATOLOGY/ONCOLOGY: Denies any bleeding or clotting disorder. HEART: Denies any chest pains, palpitations, paroxysmal dyspnea, orthopnea. PULMONARY: Denies chronic cough, dyspnea and wheezing. GASTROINTESTINAL: See HPI. GENITOURINARY: Denies dysuria, frequency, hematuria and nocturia. ENDOCRINE: Denies polydipsia, polyphagia, polyuria, heat or cold intolerance. INFECTIOUS: Denies any recent upper respiratory tract infection, UTI, need for use of antibiotics. NUTRITION: Reports good appetite. PHYSICAL EXAMINATION: VITAL SIGNS: Please see below. GENERAL APPEARANCE: Patient seen laying in bed, relatively comfortable but is able to move around the bed. Awake, alert, oriented. HEENT: Normocephalic, atraumatic. [place] palpebral conjunctivae. Anicteric sclerae. Lips moist. Does not look dehydrated CHEST: No chest wall abnormalities. Normal respiratory motion/effort. NECK: Supple. No thyromegaly. No lymphadenopathies. LUNGS: Lung sounds are clear to auscultation bilaterally. No wheezing appreciated. HEART: No chest wall abnormalities. Heart rate and rhythm are regular with no murmurs. ABDOMEN: He is an obese abdomen, minimally distended. He is tender over the right lower quadrant area with mild guarding on deep palpation only. He is nontender on the left side or on the upper abdomen. No skin changes.. SKIN: Warm, moist. EXTREMITIES: Extremities have no deformities. No edema identified. NEUROLOGICAL: Awake, alert, oriented. ANCILLARIES: . LABORATORY DATA: Please see below. MICROBIOLOGY: Please see below. IMAGING: CT scan abdomen and pelvis Ileus having reviewed by me. I reviewed this with the patient. There continues inflammation along the terminal ileum and its mesentery as well as partly at the sigmoid colon. The previous intramural collection seems to be smaller but there are no couple of bubbles of air next to the terminal ileum on the other side which tells me that the collection probably is broken apart explaining the pain. There is no extraperitoneal air outside this area. No perihepatic ascites.. IMPRESSION AND PLAN: Crohn's disease with exacerabation possibly contained perforation at terminal ileum, poss fistula to sigmoid colon Admit and observe course IV antibiotics IVF hydration most likely will need surgery I have extensively spoken to him about different scenarios that may happen. We were initially trying to avoid getting into the inflammatory process in the abdomen and trying to avoid an ileostomy with the procedure and initially were successful what patient now returns 2 weeks after discharge with sudden onset of pain. He is not ill appearing lady is fortunate. He has a low-grade fever. He also has a new leukocytosis. He has some tenderness mostly located at the right side of the umbilicus but no generalized peritonitis. At this point and not sure that he will be able to avoid surgery. Discussed this. I will briefly observe his course but if the fever continues or the pain or leukocytosis worsens then it'll go ahead for surgery. Given that he is not severely dilated most likely will try laparoscopy approach. He most likely will need an ileostomy and will not be safe for anastomosis and has been made aware of this. Vital Signs Vital Signs Date Time Temp Pulse Resp B/P (MAP) Pulse Ox O2 Delivery O2 Flow Rate FiO2 06/12/19 06:00 100.1 103 18 125/69 (87) 95 Room Air I&Os I&O- Last 24 Hours up to 6 AM 06/12/19 05:59 Intake Total 2050 ml Output Total 1300 ml Balance 750 ml Laboratory Data Labs 24H Laboratory Tests 2 06/11/19 18:36: Immature Granulocyte % (Auto) 1.6, Neutrophils (%) (Auto) 77.8H, Lymphocytes (%) (Auto) 14.2L, Monocytes (%) (Auto) 5.9H, Eosinophils (%) (Auto) 0.1, Basophils (%) (Auto) 0.4, Neutrophils # (Auto) 12.4H, Lymphocytes # (Auto) 2.3, Monocytes # (Auto) 1.0H, Eosinophils # (Auto) 0.0, Basophils # (Auto) 0.1, Nucleated Red Blood Cells % (auto) 0.0, Urine Color YELLOW, Urine Appearance CLEAR, Urine pH 6.0, Urine Specific [place] 1.016, Urine Protein NEGATIVE, Urine Glucose (UA) NEGATIVE, Urine Ketones NEGATIVE, Urine Blood NEGATIVE, Urine Nitrite NEGATIVE, Urine Bilirubin NEGATIVE, Urine Urobilinogen 0.2, Urine Leukocyte Esterase NEGATIVE, Urine WBC (Auto) 0, Urine RBC (Auto) 1, Urine Hyaline Casts (Auto) 0, Urine Bacteria (Auto) NEGATIVE, Urine Squamous Epithelial Cells 0, Urine Sperm (Auto) , Lactic Acid Level 2.8*H, Total Bilirubin 0.2, Direct Bilirubin 0.1, Aspartate Amino Transf (AST/SGOT) 22, Alanine Aminotransferase (ALT/SGPT) 56, Alkaline Phosphatase 57, Total Protein 6.7, Albumin 3.4, Albumin/Globulin Ratio 1.03, Lipase 215 06/11/19 18:43: POC Glucose (Misc Panel) 109H, POC Sodium (Misc Panel) 134L, POC Potassium (Misc Panel) 3.6, POC Chloride (Misc Panel) 96L, POC Total CO2 (Misc Panel) 27.0, POC Blood Urea Nitrogen (Misc Panel 22, POC Ionized Calcium (Misc Panel) 4.5, POC Creatinine (Misc Panel) 1.0, POC Hematocrit (Misc Panel) 40.0 06/12/19 06:29: Immature Granulocyte % (Auto) 0.9, Neutrophils (%) (Auto) 88.4H, Lymphocytes (%) (Auto) 6.7L, Monocytes (%) (Auto) 3.7, Eosinophils (%) (Auto) 0.1, Basophils (%) (Auto) 0.2, Neutrophils # (Auto) 14.1H, Lymphocytes # (Auto) 1.1L, Monocytes # (Auto) 0.6, Eosinophils # (Auto) 0.0, Basophils # (Auto) 0.0, Nucleated Red Blood Cells % (auto) 0.0, Anion Gap 5L, Glomerular Filtration Rate > 60.0, Lactic Acid Followup at 4 Hours 0.8, Calcium Level 8.0L CBC/BMP Laboratory Tests 06/11/19 18:36 06/12/19 06:29 Home Medications Scheduled Chlorthalidone (Chlorthalidone) 25 Mg Tablet, 25 MG PO DAILY, (Reported) Lisinopril (Lisinopril) 40 Mg Tab, 40 MG PO DAILY, (Reported) Paroxetine HCl (Paroxetine HCl) 20 Mg Tablet, 20 MG PO DAILY, (Reported) Prednisone (Prednisone) 10 Mg Tablet, 10 MG PO TAPER, (Reported) STARTED 06/01/2019 Take 4 tabs daily x 7 days, then 3 tabs daily x 7 days, then 2 tabs daily x 7 days, then 1 tab daily x 7 days and stop Allergies Coded Allergies: No Known Allergies (Unverified , 07/18/17) A-FIB/CHADSVASC A-FIB History Current/History of A-Fib/PAF?: No Current PO Anticoag Therapy: NIKO Vargas MD Jun 12, 2019 08:43
[2019-06-12] MEDS ORDERED: PANTOPRAZOLE 40MG INJ (PROTONIX) (C9113) IV SCH (09:00)
[2019-06-12] MEDS ORDERED: ENOXAPARIN 40 MG/0.4 ML SYRINGE (J1650) SC SCH (09:00)
[2019-06-12] MEDS ORDERED: lisinopriL 40 MG TAB PO SCH (09:00)
[2019-06-12 14:00] VITALS: BP 122/69
[2019-06-12 20:56] VITALS: BP 124/64
[2019-06-12] MEDS ORDERED: PARoxetine 20 MG TAB PO SCH (21:00)
[2019-06-13] MEDS: PERCOCET 5MG/325MG TAB PO PRN (00:47)
[2019-06-13 00:50] VITALS: BP 113/65
[2019-06-13] MEDS: PIPERACILLIN/TAZOBACTAM SOD 3.375 GM in D5W MINI-BAG PLUS 50 ML IV SCH (03:32)
[2019-06-13] MEDS: KETOROLAC 30 MG/ML VIAL (J1885) IV PRN (04:39)
[2019-06-13 05:00] VITALS: BP 114/66
[2019-06-13] MEDS: LR 1,000 ML IV SCH (05:56)
[2019-06-13 07:22] LABS: BASO % 0.2 % (0.0-1.0); EOS % 0.1 % (0.0-3.0); HEMATOCRIT 34.9 % (42.0-52.0); LYMPH # 0.5 10^3/uL (1.5-5.0); LYMPH % 3.2 % (24.0-44.0); MEAN CORPUSCULAR HEMOGLOBIN 28.1 pg (27.0-33.0); MEAN CORPUSCULAR HGB CONC 31.5 g/dl (32.0-36.5); MEAN CORPUSCULAR VOLUME 89.3 fl (80.0-96.0); MONO # 0.4 10^3/uL (0.0-0.8); MONO % 2.6 % (0.0-5.0); NEUTROPHILS # 13.2 10^3/uL (1.5-8.5); NEUTROPHILS % 92.7 % (36.0-66.0); PLATELET COUNT, AUTOMATED 209 10^3/uL (150-450); RED BLOOD COUNT 3.91 10^6/uL (4.30-6.10); WHITE BLOOD COUNT 14.2 10^3/uL (4.0-10.0)
[2019-06-13 07:40] LABS: BLOOD UREA NITROGEN 15 MG/DL (7-18); CALCIUM LEVEL 8.2 MG/DL (8.5-10.1); CARBON DIOXIDE LEVEL 30 MEQ/L (21-32); CHLORIDE LEVEL 99 MEQ/L (98-107); CREATININE FOR GFR 1.22 MG/DL (0.70-1.30); GLOMERULAR FILTRATION RATE > 60.0 (>60); GLUCOSE, FASTING 72 MG/DL (70-100); POTASSIUM SERUM 4.2 MEQ/L (3.5-5.1); SODIUM LEVEL 135 MEQ/L (136-145)
[2019-06-13] MEDS ORDERED: BUPIVACAINE HCL 0.25% 30 ML VIAL As Ordered ONE (07:52)
[2019-06-13] MEDS ORDERED: LIDOCAINE 1% SDV INJ 30 ML VIAL As Ordered ONE (07:52)
== END 2019-06-13 08:15 | disposition left against medical advice (07) | DRG 245 ==
LOC: M ED 17:55 → M ED INP 20:02 → ENRESERV 21:13 → M MS5PR 23:55
PROVIDERS: ADMIT Surgery; ATTEND Surgery
DX: K50.913 Crohn's disease, unspecified, with fistula (principal); Z79.899 Other long term (current) drug therapy

== ENCOUNTER → 2019-06-25 | Outpatient (REF) | payer BC ==
[2019-06-25 16:29] LABS: BASO # 0.1 10^3/uL (0.0-0.2); BASO % 0.8 % (0.0-1.0); EOS # 0.1 10^3/uL (0.0-0.5); EOS % 0.5 % (0.0-3.0); HEMATOCRIT 35.6 % (42.0-52.0); HEMOGLOBIN 11.3 g/dl (13.5-17.5); LYMPH # 1.7 10^3/uL (1.5-5.0); LYMPH % 12.8 % (24.0-44.0); MEAN CORPUSCULAR HEMOGLOBIN 28.4 pg (27.0-33.0); MEAN CORPUSCULAR HGB CONC 31.7 g/dl (32.0-36.5); MEAN CORPUSCULAR VOLUME 89.4 fl (80.0-96.0); MONO # 0.9 10^3/uL (0.0-0.8); MONO % 6.4 % (0.0-5.0); NEUTROPHILS # 10.4 10^3/uL (1.5-8.5); NEUTROPHILS % 76.3 % (36.0-66.0); PLATELET COUNT, AUTOMATED 827 10^3/uL (150-450); RED BLOOD COUNT 3.98 10^6/uL (4.30-6.10); WHITE BLOOD COUNT 13.6 10^3/uL (4.0-10.0)
[2019-06-25 16:58] LABS: ALBUMIN 3.2 GM/DL (3.2-5.2); ALT/SGPT 55 U/L (12-78); BILIRUBIN,TOTAL 0.2 MG/DL (0.2-1.0); BLOOD UREA NITROGEN 16 MG/DL (7-18); CALCIUM LEVEL 9.2 MG/DL (8.5-10.1); CARBON DIOXIDE LEVEL 28 MEQ/L (21-32); CHLORIDE LEVEL 99 MEQ/L (98-107); CREATININE FOR GFR 1.12 MG/DL (0.70-1.30); GLOMERULAR FILTRATION RATE > 60.0 (>60); GLUCOSE, FASTING 98 MG/DL (70-100); POTASSIUM SERUM 5.7 MEQ/L (3.5-5.1); SODIUM LEVEL 133 MEQ/L (136-145)
== END ==
LOC: M SFHCADAM 14:46
PROVIDERS: ATTEND Family Medicine
DX: K50.919 Crohn's disease, unspecified, with unspecified complications (principal)

== ENCOUNTER → 2020-03-24 | Outpatient (REF) | payer BC ==
[~2020-03-24] MED LIST changes: +AMLO1TAB24 PO; -AMLO5TAB6 PO
[2020-03-24 13:05] LABS: BASO % 0.6 % (0.0-1.0); EOS # 0.1 10^3/uL (0.0-0.5); EOS % 0.9 % (0.0-3.0); HEMATOCRIT 50.3 % (42.0-52.0); HEMOGLOBIN 16.4 g/dl (13.5-17.5); LYMPH # 1.3 10^3/uL (1.5-5.0); LYMPH % 17.9 % (24.0-44.0); MEAN CORPUSCULAR HEMOGLOBIN 29.2 pg (27.0-33.0); MEAN CORPUSCULAR HGB CONC 32.6 g/dl (32.0-36.5); MEAN CORPUSCULAR VOLUME 89.5 fl (80.0-96.0); MONO # 0.5 10^3/uL (0.0-0.8); MONO % 6.9 % (0.0-5.0); NEUTROPHILS # 5.1 10^3/uL (1.5-8.5); NEUTROPHILS % 73.3 % (36.0-66.0); PLATELET COUNT, AUTOMATED 259 10^3/uL (150-450); RED BLOOD COUNT 5.62 10^6/uL (4.30-6.10)
[2020-03-24 13:20] LABS: ALBUMIN 4.2 GM/DL (3.2-5.2); ALT/SGPT 174 U/L (12-78); BILIRUBIN,TOTAL 0.5 MG/DL (0.2-1.0); BLOOD UREA NITROGEN 18 MG/DL (7-18); CALCIUM LEVEL 9.4 MG/DL (8.5-10.1); CARBON DIOXIDE LEVEL 30 MEQ/L (21-32); CHLORIDE LEVEL 103 MEQ/L (98-107); CHOLESTEROL LEVEL 187 MG/DL (<200); CREATININE FOR GFR 0.99 MG/DL (0.70-1.30); GLOMERULAR FILTRATION RATE > 60.0 (>60); GLUCOSE, FASTING 90 MG/DL (70-100); HDL CHOLESTEROL 34 MG/DL (>40); LDL CHOLESTEROL 96 MG/DL (<100); NON-HDL-C 153 MG/DL; POTASSIUM SERUM 4.8 MEQ/L (3.5-5.1); SODIUM LEVEL 140 MEQ/L (136-145); TOTAL PROTEIN 7.7 GM/DL (6.4-8.2); TRIGLYCERIDES LEVEL 287 MG/DL (<150)
[2020-03-24 13:49] LABS: HEMOGLOBIN A1c 5.6 %
== END ==
LOC: M SFHCADAM 08:12
PROVIDERS: ATTEND Physician Assistant Medical
DX: K21.9 Gastro-esophageal reflux disease without esophagitis (principal); I10 Essential (primary) hypertension; E66.01 Morbid (severe) obesity due to excess calories; K76.0 Fatty (change of) liver, not elsewhere classified

== ENCOUNTER → 2020-03-29 | Outpatient (REF) | payer BC ==
[2020-03-29 14:27] LABS: ALBUMIN 4.3 GM/DL (3.2-5.2); ALT/SGPT 148 U/L (12-78); BILIRUBIN,TOTAL 0.5 MG/DL (0.2-1.0); BLOOD UREA NITROGEN 17 MG/DL (7-18); CALCIUM LEVEL 9.1 MG/DL (8.5-10.1); CARBON DIOXIDE LEVEL 28 MEQ/L (21-32); CHLORIDE LEVEL 101 MEQ/L (98-107); CREATININE FOR GFR 1.01 MG/DL (0.70-1.30); GLOMERULAR FILTRATION RATE > 60.0 (>60); GLUCOSE, FASTING 92 MG/DL (70-100); POTASSIUM SERUM 4.6 MEQ/L (3.5-5.1); SODIUM LEVEL 136 MEQ/L (136-145); TOTAL PROTEIN 7.7 GM/DL (6.4-8.2)
[2020-03-29 14:28] LABS: HEPATITIS B SURFACE ANTIGEN NEGATIVE (NEGATIVE)
[2020-03-29 14:55] LABS: HEPATITIS B CORE ANTIBODY IGM NEGATIVE (NEGATIVE)
[2020-03-29 14:57] LABS: HEPATITIS A ANTIBODY IGM NEGATIVE (NEGATIVE)
== END ==
LOC: M PLALAB 08:37
PROVIDERS: ATTEND Physician Assistant Medical
DX: R79.89 Other specified abnormal findings of blood chemistry (principal)

== ENCOUNTER → 2020-03-29 | Outpatient (CLI) | payer BC ==
--- NOTE | 2020-03-29 08:43 | REP ---
INDICATION: R79.89 ELEVATED LIVER FUNCTIONS COMPARISON: CT dated 06/11/2019 TECHNIQUE: Real time rene scale ultrasound examination using curved array transducer. FINDINGS: Liver is hyperechoic consistent with fatty infiltration and focal fatty sparing at the gallbladder fossa. Liver measures 18.4 cm in craniocaudal length. No focal hepatic lesions identified. Pancreas is incompletely evaluated due to interposed bowel gas. The gallbladder is normal and without gallstones, wall thickening, or pericholecystic fluid. No biliary ductal dilatation is appreciated and the common bile duct measures 4.2 mm diameter. Right kidney is normal in reniform shape without hydronephrosis and measures 12.9 x 6.2 x 5.8 cm. No ascites in the visualized right upper quadrant. IMPRESSION: 1. Hepatosteatosis and mild hepatomegaly. No focal hepatic lesion identified. <Electronically signed by Bradley Vasquez > 03/29/20 0840
== END ==
LOC: M WHC 07:43
PROVIDERS: ATTEND Physician Assistant Medical
DX: K76.0 Fatty (change of) liver, not elsewhere classified (principal); R79.89 Other specified abnormal findings of blood chemistry

== ENCOUNTER → 2020-07-05 | Outpatient (CLI) | payer OTHER ==
[~2020-07-05] MED LIST changes: -LISI40TA PO; +LISI40TA4 PO
== END ==
LOC: M LABSMTC 14:00
PROVIDERS: ATTEND Internal Medicine
DX: Z11.52 Encounter for screening for COVID-19 (principal)

== ENCOUNTER → 2022-01-03 | Outpatient (CLI) | payer OTHER | LOC: M WUC 13:41 | PROVIDERS: ATTEND Physician Assistant | DX: M54.50 Low back pain, unspecified (principal); M47.816 Spondylosis without myelopathy or radiculopathy, lumbar region ==

== ENCOUNTER → 2023-11-27 | Outpatient (REF) | payer OTHER ==
[~2023-11-27] MED LIST changes: -PAXI10TA12 PO; +PAXI10TA13 PO
[2023-11-27 13:40] LABS: CHOLESTEROL RISK RATIO 4.7 (<5); HDL CHOLESTEROL 35.3 MG/DL (>40); LDL CHOLESTEROL 91.3 MG/DL (<100); NON-HDL-C 130.7 MG/DL
[2023-11-27 13:43] LABS: THYROID STIMULATING HORMONE 0.766 uIU/ML (0.55-4.78)
[2023-11-27 13:47] LABS: BASO # 0.1 10^3/uL (0.0-0.2); BASO % 0.6 % (0.0-1.0); EOS # 0.1 10^3/uL (0.0-0.5); EOS % 1.1 % (0.0-3.0); HEMATOCRIT 43.5 % (42.0-52.0); HEMOGLOBIN 14.5 g/dl (13.5-17.5); LYMPH # 1.3 10^3/uL (1.5-5.0); LYMPH % 16.5 % (24.0-44.0); MEAN CORPUSCULAR HGB CONC 33.3 g/dl (32.0-36.5); MEAN CORPUSCULAR VOLUME 89.9 fl (80.0-96.0); MONO # 0.6 10^3/uL (0.0-0.8); MONO % 6.8 % (2.0-8.0); NEUTROPHILS % 74.4 % (36.0-66.0); PLATELET COUNT, AUTOMATED 242 10^3/uL (150-450); RED BLOOD COUNT 4.84 10^6/uL (4.30-6.10); WHITE BLOOD COUNT 8.1 10^3/uL (4.0-10.0)
[2023-11-27 13:55] LABS: HEMOGLOBIN A1c 5.2 % (4.0-6.0)
== END ==
LOC: M LAB REF 12:25
PROVIDERS: ATTEND Nurse Practitioner Family
DX: I10 Essential (primary) hypertension (principal); E66.3 Overweight

== ENCOUNTER → 2024-06-14 | Outpatient (REF) | payer OTHER ==
[2024-06-14 19:00] LABS: BASO % 0.2 % (0.0-1.0); EOS % 0.3 % (0.0-3.0); HEMATOCRIT 32.4 % (42.0-52.0); HEMOGLOBIN 10.3 g/dl (13.5-17.5); LYMPH # 1.2 10^3/uL (1.5-5.0); LYMPH % 8.8 % (24.0-44.0); MEAN CORPUSCULAR HEMOGLOBIN 29.2 pg (27.0-33.0); MEAN CORPUSCULAR HGB CONC 31.8 g/dl (32.0-36.5); MEAN CORPUSCULAR VOLUME 91.8 fl (80.0-96.0); MONO # 0.9 10^3/uL (0.0-0.8); MONO % 6.7 % (2.0-8.0); NEUTROPHILS # 10.9 10^3/uL (1.5-8.5); NEUTROPHILS % 83.4 % (36.0-66.0); PLATELET COUNT, AUTOMATED 529 10^3/uL (150-450); RED BLOOD COUNT 3.53 10^6/uL (4.30-6.10); WHITE BLOOD COUNT 13.1 10^3/uL (4.0-10.0)
[2024-06-14 19:32] LABS: BLOOD UREA NITROGEN 10 MG/DL (9-23); CALCIUM LEVEL 9.4 MG/DL (8.5-10.1); CARBON DIOXIDE LEVEL 30 MMOL/L (20-31); CHLORIDE LEVEL 101 MMOL/L (98-107); CREATININE FOR GFR 0.75 MG/DL (0.70-1.30); GLOMERULAR FILTRATION RATE > 60.0 (>60); GLUCOSE, FASTING 141 MG/DL (60-100); POTASSIUM SERUM 3.9 MMOL/L (3.5-5.1); SODIUM LEVEL 139 MMOL/L (136-145)
== END ==
LOC: M LAB REF 16:40
PROVIDERS: ATTEND Nurse Practitioner Family
DX: K50.90 Crohn's disease, unspecified, without complications (principal); E66.3 Overweight

== ENCOUNTER → 2024-06-16 | Outpatient (CLI) | payer OTHER ==
[~2024-06-16] MED LIST changes: +ISOVUE-370 76% 100ML VIAL ONE
== END ==
LOC: M PLAIMG 12:00
PROVIDERS: ATTEND Surgery
DX: R50.82 Postprocedural fever (principal); R19.7 Diarrhea, unspecified; N20.0 Calculus of kidney; Z90.49 Acquired absence of other specified parts of digestive tract; Z98.0 Intestinal bypass and anastomosis status; M96.843 Postprocedural seroma of a musculoskeletal structure following other procedure

== ENCOUNTER → 2024-07-27 | Outpatient (REF) | payer OTHER ==
[~2024-07-27] MED LIST changes: -ISOVUE-370 76% 100ML VIAL ONE
[2024-07-27 15:55] LABS: LIPASE 32 U/L (12-53)
[2024-07-27 15:57] LABS: ALBUMIN 4.1 G/DL (3.2-5.2); ALKALINE PHOSPHATASE 82 U/L (40-129); ALT/SGPT 19 U/L (7.0-40); AST/SGOT 13 U/L (<34); BILIRUBIN,TOTAL 0.3 MG/DL (0.3-1.2); BLOOD UREA NITROGEN 11 MG/DL (9-23); CALCIUM LEVEL 9.7 MG/DL (8.5-10.1); CARBON DIOXIDE LEVEL 30 MMOL/L (20-31); CHLORIDE LEVEL 101 MMOL/L (98-107); GLOMERULAR FILTRATION RATE > 60.0 (>60); GLUCOSE, FASTING 94 MG/DL (60-100); MAGNESIUM LEVEL 2.2 MG/DL (1.8-2.4); POTASSIUM SERUM 4.1 MMOL/L (3.5-5.1); PSA SCREENING 0.96 NG/ML (< 4.00); SODIUM LEVEL 139 MMOL/L (136-145); TOTAL PROTEIN 7.2 G/DL (5.7-8.2)
[2024-07-27 15:58] LABS: THYROID STIMULATING HORMONE 0.958 uIU/ML (0.55-4.78)
[2024-07-27 15:59] LABS: FOLATE 12.5 NG/ML (>5.4); TOTAL 25(OH) VITAMIN D 15.9 NG/ML (20.0-100.0)
[2024-07-27 16:23] LABS: VITAMIN B12 LEVEL 261 PG/ML (211-911)
[2024-07-27 16:36] LABS: HEMOGLOBIN A1c 4.9 % (4.0-6.0)
== END ==
LOC: M LAB REF 15:11
PROVIDERS: ATTEND Nurse Practitioner Family
DX: R11.0 Nausea (principal); R00.2 Palpitations; Z80.42 Family history of malignant neoplasm of prostate; E55.9 Vitamin D deficiency, unspecified

== ENCOUNTER → 2024-08-02 | Outpatient (CLI) | payer OTHER | LOC: M EKG 13:47 | PROVIDERS: ATTEND Nurse Practitioner Family | DX: R00.2 Palpitations (principal); Z53.9 Procedure and treatment not carried out, unspecified reason ==

== ENCOUNTER → 2024-12-01 | Outpatient (CLI) | payer MEDICAID, OTHER ==
[~2024-12-01] MED LIST changes: -FLOM0.4C39 PO; +LEVO1TAB40 PO; +LISI40TA10 PO; -LISI40TA4 PO; +PANT20TA6 PO; +TAMS-18 PO
== END ==
LOC: M RAD 14:08
PROVIDERS: ATTEND Internal Medicine
DX: R19.7 Diarrhea, unspecified (principal); N28.1 Cyst of kidney, acquired

== ENCOUNTER → 2025-02-28 | Outpatient (REF) | payer OTHER | LOC: M LAB REF 10:42 | PROVIDERS: ATTEND Nurse Practitioner Family | DX: K57.32 Diverticulitis of large intestine without perforation or abscess without bleeding (principal); R19.7 Diarrhea, unspecified; R93.5 Abnormal findings on diagnostic imaging of other abdominal regions, including retroperitoneum ==

== ENCOUNTER → 2025-03-08 | Outpatient (REF) | payer OTHER | LOC: M LAB REF 14:26 | PROVIDERS: ATTEND Internal Medicine Gastroenterology | DX: K50.012 Crohn's disease of small intestine with intestinal obstruction (principal); R19.7 Diarrhea, unspecified; K50.112 Crohn's disease of large intestine with intestinal obstruction ==